=== PATIENT | female | born 1990 | race American Indian/Alaskan Native ===

== ENCOUNTER 2017-04-07 11:15 | Inpatient (IN) | payer MEDICAID, OTHER ==
[2017-04-07] MEDS ORDERED: Citric Acid/Sodium Citrate Solution 30 ML Cup PO ONE (12:01)
[2017-04-07] MEDS ORDERED: Sodium Chloride 0.9% 10 ML Syringe FLUSH PRN (12:01)
[2017-04-07] MEDS ORDERED: Magnesium Sulfate/Water 100 ML IV ONE (12:03)
[2017-04-07] MEDS ORDERED: Betamethasone Acetate/Betamethasone Sod Phosphate 30 MG/5 ML MDV IM STA (12:04)
[2017-04-07] MEDS ORDERED: Oxytocin/Normal Saline 60 UNIT/1,000 ML BAG ONE (12:06)
[2017-04-07] MEDS ORDERED: ceFAZolin 2 GM in Premix Bag 1 BAG IV ONE (12:30)
--- NOTE | 2017-04-07 12:46 | US ---
Clinical history: 27-year-old gravid female with twins (dichorionic/diamniotic) who at 30 weeks is "i n labor". Most recent obstetrical sonogram 30 March, [facility], confirms "twin live intrauterine gestatio ns with separate sacs and anterior placentas. Largest baby in the upper uterus, left, with average ag e of 30 weeks while the smaller baby, lower uterine segment, had an average gestational age of 28 wee ks 4 days." Interpretation: Limited emergency sonographic imaging for presentation demonstrates the infant on the right, lower ut erine segment to be in a transverse lie and breech presentation. Clinically, maternal dilatation cervix "5 cm".
[2017-04-07] MEDS ORDERED: Misoprostol 400 MCG (4 X 100 MCG TAB) ONE (12:53)
[2017-04-07] MEDS ORDERED: Methylergonovine 0.2 MG/1 ML Amp ONE (12:54)
[2017-04-07] MEDS ORDERED: Carboprost Tromethamine 250 MCG/1 ML Amp ONE (12:54)
--- NOTE | 2017-04-07 13:25 | HP ---
CHIEF COMPLAINT: Increased contractions. HISTORY OF PRESENT ILLNESS: A 27-year-old, 3, para 2-0-0-2, currently at 30 and 6/7 weeks gestation, based on a 3rd trimester ultrasound. The patient reports contractions since about 2 o'clock this morning that she thought were not that bad and going to go way; since that time, they got worse, specifically at about 10:00 a.m. they became severe enough that she felt she needed to come into the hospital and could not get a ride, so presented by ambulance. She has dichorionic diamniotic twins. She had denied any leakage of fluid, vaginal bleeding prior to presentation. She has had good movement. She has only had 1 outpatient care visit and then 1 transfer from here to [place] at 27+ weeks for some threatened labor with vaginal bleeding; at that time, cervix was 1.9 cm in cervical length. She was diagnosed with no placenta previa. PAST MEDICAL HISTORY: Abnormal Pap smear, urinary tract infections, chronic anemia, and history of methamphetamine positive on her last drug test. PAST SURGICAL HISTORY: None. SOCIAL HISTORY: She continues to deny any use of tobacco, alcohol, or drugs. She has 3 and 5-year-old daughters at home. She is not working. The father of the baby is present; his name is Glenn Ponce. He reports that he is healthy as are his parents. He is working for [employer]; his cell phone number is [phone]. FAMILY HISTORY: Heart disease in mother and maternal grandmother. Diabetes in mother and maternal aunts. Otherwise, family history is noncontributory. No history of multiple births. MEDICATIONS: None. The patient is not taking her vitamins or iron as prescribed. ALLERGIES: None. REVIEW OF SYSTEMS: As listed above. No nausea, vomiting, chest pain, or shortness of breath. Denies any dysuria or other new symptoms other than potential labor. No headaches or blurry vision. PHYSICAL EXAMINATION: Vital Signs: Can be reviewed on her monitoring strip. Blood pressure 134/83, pulse of 91, temperature is 97.5. HEENT: Severe dental caries. Otherwise, grossly unremarkable. Heart: Regular without obvious murmur. Lungs: Intermittent cough and chest congestion audible. Abdomen: Gravid and fundal height appropriate with dates. Stowell shows primarily uterine irritability, but contractions seemed to be coming about every 4 to 5 minutes based on the patient's behavior and palpate firm. Ultrasound shows both of the babies heads are up by mom's liver. Baby A's buttocks are down by the vagina and baby B's buttocks are over by the spleen. Bag of water is intact. Attempted cervical length ultrasound, and no cervix was essentially seen. Digital exam revealed cervix to be 5 to 6 cm dilated, and palpable foot or hand presenting. Significant vaginal bleeding was also noted on examination. Extremities: No edema, erythema, or tenderness noted. SKIN: No obvious skin rashes. NEUROLOGIC: Normal. ASSESSMENT: 1. Dichorionic diamniotic twins, in labor. 2. Breech presentation of twin A with extremity presenting, breech oblique presentation of twin B. 3. High-risk . 4. Insufficient care. 5. Severe anemia with most recently known hemoglobin of 8.0 with noncompliance of medical treatments. 6. History of methamphetamine abuse. 7. Unknown gonorrhoea and chlamydia status; they have not been collected this . Other lab tests were essentially negative for hepatitis, HIV, syphilis, Rubella equivocal, etc. PLAN: Intensive Care Nursery team has been notified and they will be sending 2 transport teams to fruit picker machine operator the infants. Due to the patient's amount of vaginal bleeding, we are going to go to the operating room and try and provide spinal anesthetic and hopefully wait until the Team gets here to start surgery. If that is not possible, we will need to deliver these twins earlier. Dr. Wolf will attend twin A; I will attend twin B. After that time , Dr. Rodriguez and Adal Johnson, MS-4, will close on the surgical case. Mother has been informed of these things and informed consent was discussed and obtained from her and appropriate consent forms signed. Details of that consent will be outlined in her operative report. ADDENDUM: Maternal UDS positive for Methamphetamine. She admited to the nurse use of Tramadol as well. [facility] /[id number] BECKIE
[2017-04-07] MEDS ORDERED: Oxytocin/Normal Saline 30 UNIT/500 ML BAG IV SCH ×2 (15:00→23:00)
[2017-04-07] MEDS: Lactated Ringers 1,000 ML IV ONE ×2 (15:01→18:26)
--- NOTE | 2017-04-07 15:26 | PCM.SN ---
- Free Text/Narrative Note: 04/07/17 1220 preop o allergies on no medications no past surgery or family history of complications with anesthesia heart regular rhythm lungs expiratory rhonchi possible respiratory infection hgb 9.4 plt 301 npo 8 hrs mallampati 1 plan spinal anesthesia this along with risks goals alternatives explained to patient and accepted
[2017-04-07] MEDS ORDERED: Erythromycin Base 0.5% Ophth Oint 1 GM Tube EYEBOTH ONE (15:50)
[2017-04-07] MEDS ORDERED: Phytonadione 1 MG/0.5 ML Syringe SUBCUT ONE (15:51)
[2017-04-07] MEDS ORDERED: Ketorolac 30 MG/ML SDV IVPUSH ONE (16:37)
[2017-04-07] MEDS ORDERED: Midazolam 1 MG/ML 2 ML SDV IV ONE (16:37)
[2017-04-07] MEDS ORDERED: Ondansetron 4 MG/2 ML SDV IV ONE (16:37)
[2017-04-07] MEDS ORDERED: Dexamethasone 4 MG/ML SDV IV ONE (16:37)
[2017-04-07] MEDS ORDERED: Lactated Ringers 1,000 ML IV ONE (16:37)
[2017-04-07] MEDS ORDERED: ePHEDrine 50 MG/ML SDV IV ONE (16:37)
[2017-04-07] MEDS ORDERED: fentaNYL 100 MCG/2 ML SDV IV ONE (16:37)
[2017-04-07] MEDS ORDERED: fentaNYL 100 MCG/2 ML SDV IVPUSH ONE (19:19)
[2017-04-07] MEDS: guaiFENesin 100 MG/5 ML Soln 5 ML UD Cup PO PRN (19:35)
[2017-04-07] MEDS ORDERED: Naloxone 2 MG/2 ML Syringe IVPUSH PRN (21:22)
[2017-04-07] MEDS ORDERED: Measles, Mumps & Rubella Vaccine 0.5 ML SDV SUBCUT ONE (21:22)
[2017-04-07] MEDS ORDERED: Acetaminophen/oxyCODONE 325-5 MG Tab PO PRN ×2 (21:22)
[2017-04-07] MEDS ORDERED: ePHEDrine 50 MG/ML SDV IVPUSH PRN (21:22)
[2017-04-07] MEDS ORDERED: diphenhydrAMINE 50 MG/ML SDV IVPUSH PRN (21:22)
[2017-04-07] MEDS ORDERED: Acetaminophen 325 MG Tab PO PRN (21:22)
[2017-04-07] MEDS: Ketorolac 30 MG/ML SDV IVPUSH SCH (21:59)
[2017-04-08] MEDS: Lactated Ringers 1,000 ML IV SCH ×2 (01:37→11:55)
[2017-04-08] MEDS: guaiFENesin 100 MG/5 ML Soln 5 ML UD Cup PO PRN ×4 (01:43→20:30)
[2017-04-08] MEDS: ceFAZolin 1 GM in Premix Bag 1 BAG IV SCH ×3 (02:26→17:37)
[2017-04-08] MEDS: Ketorolac 30 MG/ML SDV IVPUSH SCH ×2 (03:32→09:40)
--- NOTE | 2017-04-08 06:57 | PCM.SN ---
- Free Text/Narrative Note: 04/08/17 7920 postop patient recovered well from spinal anesthesia eating drinking denies nausea pain well controlled no complaints or apparent complications with anesthesia
--- NOTE | 2017-04-08 07:23 | OR ---
DATE: 04/07/2017 PREOPERATIVE DIAGNOSES: 1. Dichorionic-diamniotic twins in labor. 2. Breech presentation of twin A with extremity presenting, breech oblique presentation of twin B. 3. High-risk . 4. Insufficient care. 5. Severe anemia, acute on chronic. 6. History of methamphetamine abuse with a positive methamphetamine drug screen prior to surgery as well as admission of use of tramadol. 7. Unknown Gonorrhea and Chlamydia status. 8. Unknown group B Streptococcus status. POSTPROCEDURE DIAGNOSES: 1. Dichorionic-diamniotic twins in labor. 2. Breech presentation of twin A with extremity presenting, breech oblique presentation of twin B. 3. High-risk . 4. Insufficient care. 5. Severe anemia, acute on chronic. 6. History of methamphetamine abuse with a positive methamphetamine drug screen prior to surgery as well as admission of use of tramadol. 7. Unknown gonorrhea and chlamydia status. 8. Unknown group B Streptococcus status. 9. Suspicion for a small placental abruption. 10.Meconium-stained fluid for twin B. BRIEF HISTORY: The patient is a 27-year-old 3, para 2-0-0-2, currently at 30 and 6/7 weeks' gestation based on third-trimester ultrasound, who presented to the hospital complaining of increased force and frequency of contractions worse since 10:00 am. Ultimately, she was found to be 5 to 6 cm dilated with extremities presenting. Ultrasound confirming the positions as noted above. She also had a moderate amount of vaginal bleeding present on examination. Please see history and physical for full details. She was brought to the operating room and held there with spinal anesthesia in place to stall the labor and allow us to delay delivery until the Intensive Care nursery team was available to assist with the babies. The patient was not a transfer candidate due to advanced cervical dilatation and her advanced stage of labor at this time as well as high-risk presentation of the babies. SURGEON: Annmarie García MD. DIGITAL MARKETING ASSOCIATE: Raven Wolf MD. SECOND HOTEL SERVICES SALES REPRESENTATIVE: Adal Johnson MS-IV. Available in the operating room, Dr. Rodriguez, general surgeon. PROCEDURE PERFORMED: Primary low transverse section without complications. CONSENT: Discussed with the patient and her boyfriend indications, risks, benefits, and alternatives of primary low transverse section for delivery of breech twins while in advanced labor. Discussed plan for preoperative antibiotics to reduce risk of infection, anticipation of significant blood loss that may require a blood transfusion as well as its inherent risks, risk of injury to any internal organs and adjacent structures including, but not limited to, large blood vessels, nerves, veins, muscles, bladder, fallopian tubes, uterus, ovaries, ureters, intestines, and any other adjacent structures, potential for injury to the babies that would require immediate repair. Discussed that the babies will be transferred to a higher level of care with the Intensive Care nursery available. Mother will be kept here at least 2 days postoperatively to make sure that she is doing well. Discussed potential for complications that could require mother to be transferred out as well. Also, discussed remote risk of for her and/or either of the baby's. Her questions were answered and she was agreeable to proceed. Appropriate consent forms were signed and can be found in the chart. PROCEDURE IN DETAIL: The patient was brought to the operating room and spinal anesthesia obtained. She was laid in the dorsal supine position with leftward tilt. The Shaikh indwelling catheter had been in place since the delivery room. We waited until the NICU team was nearby, we were able to wait since she was not having any further vaginal bleeding. monitoring tracings were also continued during this entire time and were reassuring and reactive. The spinal was able to control the contractions, so that labor was not progressing. Once the team was close enough, abdomen was prepped with Betadine and sterile dressings applied in the usual fashion, appropriate location for skin incision was decided upon and marked and skin was tested. The skin incision was made with scalpel at 1355 hours and carried down to the subcutaneous tissues, superficial vessels controlled with cautery prior to transection as much as possible. Fascia was nicked bilaterally with the cautery in order to create the initial opening. The Unger scissors were then used to extend the fascial incision bilaterally. Kochers were used to grasp the fascia, tented up, and rectus muscles dissected off with traction and Unger scissors. Inferior fascial edge grasped with Kochers, tented up, and rectus muscles dissected off with Unger scissors. Rectus muscles were in the midline with blunt finger dissection and peritoneal cavity entered with blunt finger dissection and traction. Uterus was inspected and had a bluish quality to it making us concern for underlying abruption. Several large blood vessels were also noted throughout the uterus itself. Lower uterine segment was now well-developed presumably due to the nature as well as the extremities presenting more so than julius breech. After the NICU team was ready, we made the uterine incision at 1403 hours and carried that down until just a thin layer was present. Hysterotomy itself was created with blunt finger penetration and extended bilaterally using the Quintanilla method curving upward at the outward edges to avoid some of the larger blood vessels. Immediately upon entry to the uterus, there was noted to be a fair amount of dark old blood consistent with recent small abruption, placenta initially presented at the hysterotomy site as well. Amniotic fluid sac was intact and ruptured with Allis clamps and then the 's feet were delivered most readily and baby was noted to be in right sacrum anterior. We delivered to the level of the 's chest and then the arms were delivered after sweeping across the chest, first the right followed by the left. Infant was delivered maintaining adequate flexion of the head. Infant's mouth and nose were bulb suctioned while the three-vessel umbilical cord was doubly clamped and then cut and baby taken to the warmer for further evaluation. Cord blood sample then obtained. Amniotic fluid sac for twin B was then brought up to the hysterotomy site and a light meconium-stained fluid was noted, that amniotic fluid sac was ruptured and baby B was noted to be with the head near the maternal liver and spine up with the buttocks over by the maternal spleen. I had attempted to rotate the baby to head down and due to my angle was unsuccessful, Dr. Wolf, however, was able to easily turn the baby to vertex presentation and then delivered the baby, head 1st. The 's mouth and nose were bulb suctioned and the three-vessel umbilical cord doubly clamped and cut and baby taken to the warmer for the awaiting NICU nurses. The cord blood sample was then obtained and then placenta was delivered by gentle cord traction and concomitant uterine massage at 1408 hours. Bleeders of the hysterotomy site were controlled with Stiles's, and the hysterotomy closed with a running lock stitch of 0 Vicryl in the usual fashion. There remained some continued bleeders and a 2nd imbricated, an occasional locking stitch was used as a 2nd layer on the uterus and hemostasis was improved. There were still 1 area of bleeding and a single [id number] stitch was placed, after which the bleeding was well controlled. The surgical site was irrigated and remained hemostatic. The Mateus O retractor was removed and pericolic gutters were cleared of all clots and debris. Hysterotomy site reinspected and remained hemostatic. Peritoneal layer then closed with a remnant of 0 Vicryl stitch that was available and then that layer was irrigated and cleared of all clots and debris. Fascia was closed with a running stitch of 0 looped PDS in the usual fashion. Subcutaneous bleeders were then controlled with cautery and this layer irrigated. Skin was then closed with hari. Mother had tolerated the procedure well. nursing staff was taking care of the infants in the adjacent operating room. FINDINGS: Twin A, delivered RSA viable male, born at 1406 hours, scores of 7 and 9. Twin B delivered in RENU position at 1408 hours, scores of 6 and 7, also male. Maternal anatomy was normal. She did have several large blood vessels on the uterus, which we took care to avoid. ESTIMATED BLOOD LOSS: 1 L. URINE OUTPUT: 100 mL clear. FLUIDS: 3700 mL of crystalloids, and normal saline with Pitocin. COMPLICATIONS: None. DISPOSITION: Mother to go to the PACU, infants to remain with the nursing staff until they are transferred to [place]. [facility] /[id number] MTDD
[2017-04-08] MEDS ORDERED: Acetaminophen/oxyCODONE 325-5 MG Tab PO PRN (07:58)
[2017-04-08] MEDS: Prenatal Multivitamin with Calcium/Folic Acid/Iron Tab PO SCH (09:39)
[2017-04-08] MEDS: Ferrous Sulfate 325 MG Tab PO SCH ×2 (09:39→20:37)
[2017-04-08] MEDS: Ibuprofen 800 MG Tab PO PRN (19:55)
[2017-04-08] MEDS ORDERED: Morphine 4 MG/ML Syringe IVPUSH STA (20:02)
[2017-04-08] MEDS ORDERED: Benzonatate 100 MG Cap PO PRN (20:07)
[2017-04-08] MEDS ORDERED: Azithromycin 250 MG Tab PO ONE (20:08)
[2017-04-08] MEDS: Acetaminophen/oxyCODONE 325-5 MG Tab PO PRN (20:16)
[2017-04-08] MEDS: Docusate Sodium 100 MG Cap PO PRN (20:31)
[2017-04-08] MEDS: Simethicone 80 MG Tab.Chew PO PRN (20:31)
--- NOTE | 2017-04-08 22:36 | PCM.PNPP ---
<Adal Johnson - Last Filed: 04/09/17 09:07> - General Info Date of Service: 04/08/17 Functional Status: Reports: Pain Controlled - Review of Systems General: Reports: Malaise. Denies: Fever, Weakness HEENT: Denies: Dysphasia, Headaches, Visual Changes Pulmonary: Denies: Shortness of Breath, Pleuritic Chest Pain, Cough, Hemoptysis Cardiovascular: Denies: Chest Pain, Palpitations, Lightheadedness Gastrointestinal: Denies: Flatus (patient claims), Nausea, Vomiting Genitourinary: Denies: Pain, Urgency, Hematuria Musculoskeletal: Reports: Leg Pain (sore). Denies: Neck Pain, Joint Swelling Skin: Denies: Cyanosis, Jaundice, Bruising, Pruritis Neurological: Denies: Confusion, Dizziness, Headache, Paresthesia, Syncope Psychiatric: Denies: Confusion, Depression, Hallucinations - General Info Date of Service: 04/08/17 - Patient Data Vital Signs - Most Recent: Last Vital Signs Temp 98.7 F 04/08/17 16:00 Pulse 72 04/08/17 16:00 Resp 18 04/08/17 16:00 BP 114/76 04/08/17 16:00 Pulse Ox 98 04/08/17 16:00 Weight - Most Recent: 62.142 kg I&O - Last 24 Hours: Intake & Output 04/08/17 04/08/17 04/08/17 06:59 14:59 22:59 Intake Total 1600 750 Output Total 625 1800 Balance 975 -1050 Med Orders - Current: Current Medications Acetaminophen (Tylenol) 650 mg PO Q6H PRN PRN Reason: mild pain or fever Benzonatate (Tessalon Perles) 100 mg PO TID PRN PRN Reason: Cough Last Admin: 04/08/17 20:31 Dose: 100 mg Diphenhydramine HCl (Benadryl) 25 mg IVPUSH Q6H PRN PRN Reason: Itching or Nausea Docusate Sodium (Colace) 100 mg PO Q12H PRN PRN Reason: Constipation Last Admin: 04/08/17 20:31 Dose: 100 mg Ephedrine Sulfate (Ephedrine Sulfate) 5 mg IVPUSH SEECOMMENT PRN PRN Reason: Other Ferrous Sulfate (Ferrous Sulfate) 325 mg PO BID MARGUERITE Last Admin: 04/08/17 20:37 Dose: 325 mg Guaifenesin (Robitussin) 100 mg PO Q6H PRN PRN Reason: Cough Last Admin: 04/08/17 20:30 Dose: 100 mg Lactated Ringer's (Ringers, Lactated) 1,000 mls @ 125 mls/hr IV ASDIRECTED MARGUERITE Last Admin: 04/08/17 11:55 Dose: 125 mls/hr Oxytocin/Sodium Chloride (Pitocin In Ns 30 Unit/500 Ml) 30 unit in 500 mls @ 500 mls/hr IV TITRATE MARGUERITE; 500 MUNITS/MIN PRN Reason: Protocol Ibuprofen (Motrin) 800 mg PO Q8H PRN PRN Reason: mild pain or fever Last Admin: 04/08/17 19:55 Dose: 800 mg Naloxone HCl (Narcan) 0.1 mg IVPUSH SEECOMMENT PRN PRN Reason: Respiratory Depression Oxycodone/Acetaminophen (Percocet 325-5 Mg) 2 tab PO Q4H PRN PRN Reason: Pain Last Admin: 04/08/17 20:16 Dose: 2 tab Prenat Multivit/Log Driver/Iron/Folic Ac ( Plus Iron) 1 each PO DAILY MARGUERITE Last Admin: 04/08/17 09:39 Dose: 1 each Simethicone (Simethicone) 80 mg PO Q4H PRN PRN Reason: Gas Last Admin: 04/08/17 20:31 Dose: 80 mg Discontinued Medications Azithromycin (Zithromax) 500 mg PO ONETIME ONE Stop: 04/08/17 20:09 Last Admin: 04/08/17 20:32 Dose: 500 mg Betamethasone Acet/Betameth SodPhos (Celestone Soluspan 6 Mg/Ml) 12 mg IM ONETIME STA Stop: 04/07/17 12:05 Last Admin: 04/07/17 12:41 Dose: 12 mg Carboprost Tromethamine (Hemabate Ds) Confirm Administered Dose 250 mcg .ROUTE .STK-MED ONE Stop: 04/07/17 12:55 Citric Acid/Sodium Citrate (Bicitra Solution) 30 ml PO ONETIME ONE Stop: 04/07/17 12:02 Last Admin: 04/07/17 17:09 Dose: Not Given Dexamethasone (Dexamethasone) 4 mg IV .STK-MED ONE Stop: 04/07/17 16:38 Ephedrine Sulfate (Ephedrine Sulfate) 20 mg IV .STK-MED ONE Stop: 04/07/17 16:38 Fentanyl (Sublimaze) 50 mcg IV .STK-MED ONE Stop: 04/07/17 16:38 Fentanyl (Sublimaze) 50 mcg IVPUSH ONETIME ONE Stop: 04/07/17 19:20 Last Admin: 04/07/17 19:35 Dose: Not Given Lactated Ringer's (Ringers, Lactated) 1,000 mls @ 999 mls/hr IV .BOLUS ONE Stop: 04/07/17 12:48 Last Infusion: 04/08/17 01:35 Dose: Infused Magnesium Sulfate (Magnesium Sulfate 4 Gm In Water 100 Ml) 100 mls @ 25 mls/hr IV ONETIME ONE Stop: 04/07/17 16:02 Last Infusion: 04/07/17 13:15 Dose: 50 mls/hr Oxytocin/Sodium Chloride (Pitocin In Ns 30 Unit/500 Ml) Confirm Administered Dose 60 unit in 1,000 mls @ as directed .ROUTE .STK-MED ONE Stop: 04/07/17 12:07 Cefazolin Sodium/Dextrose 2 gm (/ Premix) 50 mls @ 100 mls/hr IV ONETIME ONE Stop: 04/07/17 12:59 Last Admin: 04/07/17 13:41 Dose: 100 mls/hr Oxytocin/Sodium Chloride (Pitocin In Ns 30 Unit/500 Ml) 30 unit in 500 mls @ 125 mls/hr IV TITRATE MARGUERITE; 125 MUNITS/MIN PRN Reason: Protocol Last Titration: 04/07/17 16:00 Dose: 50 mls/hr Lactated Ringer's (Ringers, Lactated) 1,000 mls @ as directed IV .STK-MED ONE Stop: 04/07/17 16:38 Cefazolin Sodium/Dextrose 1 gm (/ Premix) 50 mls @ 100 mls/hr IV Q8H MARGUERITE Stop: 04/08/17 18:29 Last Admin: 04/08/17 17:37 Dose: 100 mls/hr Ketorolac Tromethamine (Toradol) 30 mg IVPUSH .STK-MED ONE Stop: 04/07/17 16:38 Ketorolac Tromethamine (Toradol) 15 mg IVPUSH Q6H MARGUERITE Stop: 04/08/17 09:31 Last Admin: 04/08/17 09:40 Dose: 15 mg Measles/Mumps/Rubella Vaccine Live (M-M-R Ii Vaccine) 0.5 ml SUBCUT .ONCE ONE Stop: 04/07/17 21:23 Last Admin: 04/07/17 22:51 Dose: Not Given Methylergonovine Maleate (Methergine) Confirm Administered Dose 0.2 mg .ROUTE .STK-MED ONE Stop: 04/07/17 12:55 Midazolam HCl (Versed 1 Mg/Ml) 1 mg IV .STK-MED ONE Stop: 04/07/17 16:38 Misoprostol (Cytotec) Confirm Administered Dose 800 mcg .ROUTE .STK-MED ONE Stop: 04/07/17 12:54 Morphine Sulfate (Morphine) 4 mg IVPUSH ONETIME STA Stop: 04/08/17 20:03 Last Admin: 04/08/17 20:13 Dose: 4 mg Ondansetron HCl (Zofran) 4 mg IV .STK-MED ONE Stop: 04/07/17 16:38 Oxycodone/Acetaminophen (Percocet 325-5 Mg) 1 tab PO Q4H PRN PRN Reason: Pain (moderate 4-6) Oxycodone/Acetaminophen (Percocet 325-5 Mg) 2 tab PO Q4H PRN PRN Reason: Pain (moderate 4-6) Last Admin: 04/08/17 07:49 Dose: 2 tab Oxycodone/Acetaminophen (Percocet 325-5 Mg) 2 tab PO Q6H PRN PRN Reason: Pain (moderate 4-6) Last Admin: 04/08/17 15:11 Dose: 2 tab Sodium Chloride (Saline Flush) 10 ml FLUSH ASDIRECTED PRN PRN Reason: Keep Vein Open Last Admin: 04/07/17 15:01 Dose: 10 ml - Infant Interaction Infant Disposition, : Twins transfered to GF Interaction: Not Applicable Infant Feeding: Other (see below) (See outside facility notes) Support Person: Significant Other - Recovery Exam Fundal Tone: Firm Fundal Level: 2 Fingerbreadths Below Umbilicus Fundal Placement: Midline Lochia Amount: Small Lochia Color: Rubra/Red Perineum Description: Intact, Minimal Bruising/Swelling Episiotomy/Laceration: None Bladder Status: Indwelling Catheter in Place Urinary Elimination: Indwelling Catheter - Exam General: Alert, Oriented HEENT: Pupils Reactive, Mucous Membr. Moist/[place] Neck: Supple Lungs: Normal Respiratory Effort, Wheezing Cardiovascular: Regular Rate, Regular Rhythm, No Murmurs GI/Abdominal Exam: Normal Bowel Sounds, Soft Extremities: Normal Inspection, Normal Range of Motion, No Pedal Edema Skin: Warm, Dry, Intact Wound/Incisions: Healing Well Neurological: No New Focal Deficit Psy/Mental Status: Alert, Normal Affect, Normal Mood - Problem List Review Problem List Initiated/Reviewed/Updated: Yes - Assessment Assessment:: 1. post day 1 2. Patient is doing generally well with some general soreness and possible - Plan Plan:: 1. Continue current treatment and observe for any changes 2. Plan to keep mom until tomorrow <Annmarie Calero - Last Filed: 04/10/17 14:11> - Patient Data Vital Signs - Most Recent: Last Vital Signs Temp 99.1 F 04/09/17 08:00 Pulse 63 04/09/17 08:00 Resp 18 04/09/17 04:00 BP 125/81 04/09/17 08:00 Pulse Ox 100 04/09/17 08:00 Med Orders - Current: Current Medications Discontinued Medications Acetaminophen (Tylenol) 650 mg PO Q6H PRN PRN Reason: mild pain or fever Azithromycin (Zithromax) 500 mg PO ONETIME ONE Stop: 04/08/17 20:09 Last Admin: 04/08/17 20:32 Dose: 500 mg Benzonatate (Tessalon Perles) 100 mg PO TID PRN PRN Reason: Cough Last Admin: 04/08/17 20:31 Dose: 100 mg Betamethasone Acet/Betameth SodPhos (Celestone Soluspan 6 Mg/Ml) 12 mg IM ONETIME STA Stop: 04/07/17 12:05 Last Admin: 04/07/17 12:41 Dose: 12 mg Carboprost Tromethamine (Hemabate Ds) Confirm Administered Dose 250 mcg .ROUTE .STK-MED ONE Stop: 04/07/17 12:55 Citric Acid/Sodium Citrate (Bicitra Solution) 30 ml PO ONETIME ONE Stop: 04/07/17 12:02 Last Admin: 04/07/17 17:09 Dose: Not Given Dexamethasone (Dexamethasone) 4 mg IV .STK-MED ONE Stop: 04/07/17 16:38 Diphenhydramine HCl (Benadryl) 25 mg IVPUSH Q6H PRN PRN Reason: Itching or Nausea Docusate Sodium (Colace) 100 mg PO Q12H PRN PRN Reason: Constipation Last Admin: 04/09/17 09:10 Dose: 100 mg Ephedrine Sulfate (Ephedrine Sulfate) 20 mg IV .STK-MED ONE Stop: 04/07/17 16:38 Ephedrine Sulfate (Ephedrine Sulfate) 5 mg IVPUSH SEECOMMENT PRN PRN Reason: Other Fentanyl (Sublimaze) 50 mcg IV .STK-MED ONE Stop: 04/07/17 16:38 Fentanyl (Sublimaze) 50 mcg IVPUSH ONETIME ONE Stop: 04/07/17 19:20 Last Admin: 04/07/17 19:35 Dose: Not Given Ferrous Sulfate (Ferrous Sulfate) 325 mg PO BID MARGUERITE Last Admin: 04/09/17 09:09 Dose: 325 mg Guaifenesin (Robitussin) 100 mg PO Q6H PRN PRN Reason: Cough Last Admin: 04/09/17 04:25 Dose: 100 mg Lactated Ringer's (Ringers, Lactated) 1,000 mls @ 999 mls/hr IV .BOLUS ONE Stop: 04/07/17 12:48 Last Infusion: 04/08/17 01:35 Dose: Infused Magnesium Sulfate (Magnesium Sulfate 4 Gm In Water 100 Ml) 100 mls @ 25 mls/hr IV ONETIME ONE Stop: 04/07/17 16:02 Last Infusion: 04/07/17 13:15 Dose: 50 mls/hr Oxytocin/Sodium Chloride (Pitocin In Ns 30 Unit/500 Ml) Confirm Administered Dose 60 unit in 1,000 mls @ as directed .ROUTE .STK-MED ONE Stop: 04/07/17 12:07 Cefazolin Sodium/Dextrose 2 gm (/ Premix) 50 mls @ 100 mls/hr IV ONETIME ONE Stop: 04/07/17 12:59 Last Admin: 04/07/17 13:41 Dose: 100 mls/hr Oxytocin/Sodium Chloride (Pitocin In Ns 30 Unit/500 Ml) 30 unit in 500 mls @ 125 mls/hr IV TITRATE MARGUERITE; 125 MUNITS/MIN PRN Reason: Protocol Last Titration: 04/07/17 16:00 Dose: 50 mls/hr Lactated Ringer's (Ringers, Lactated) 1,000 mls @ as directed IV .STK-MED ONE Stop: 04/07/17 16:38 Lactated Ringer's (Ringers, Lactated) 1,000 mls @ 125 mls/hr IV ASDIRECTED MARGUERITE Last Admin: 04/09/17 09:54 Dose: 125 mls/hr Oxytocin/Sodium Chloride (Pitocin In Ns 30 Unit/500 Ml) 30 unit in 500 mls @ 500 mls/hr IV TITRATE MARGUERITE; 500 MUNITS/MIN PRN Reason: Protocol Cefazolin Sodium/Dextrose 1 gm (/ Premix) 50 mls @ 100 mls/hr IV Q8H MARGUERITE Stop: 04/08/17 18:29 Last Admin: 04/08/17 17:37 Dose: 100 mls/hr Ibuprofen (Motrin) 800 mg PO Q8H PRN PRN Reason: mild pain or fever Last Admin: 04/09/17 04:24 Dose: 800 mg Ketorolac Tromethamine (Toradol) 30 mg IVPUSH .STK-MED ONE Stop: 04/07/17 16:38 Ketorolac Tromethamine (Toradol) 15 mg IVPUSH Q6H MARGUERITE Stop: 04/08/17 09:31 Last Admin: 04/08/17 09:40 Dose: 15 mg Measles/Mumps/Rubella Vaccine Live (M-M-R Ii Vaccine) 0.5 ml SUBCUT .ONCE ONE Stop: 04/07/17 21:23 Last Admin: 04/07/17 22:51 Dose: Not Given Methylergonovine Maleate (Methergine) Confirm Administered Dose 0.2 mg .ROUTE .STK-MED ONE Stop: 04/07/17 12:55 Midazolam HCl (Versed 1 Mg/Ml) 1 mg IV .STK-MED ONE Stop: 04/07/17 16:38 Misoprostol (Cytotec) Confirm Administered Dose 800 mcg .ROUTE .STK-MED ONE Stop: 04/07/17 12:54 Morphine Sulfate (Morphine) 4 mg IVPUSH ONETIME STA Stop: 04/08/17 20:03 Last Admin: 04/08/17 20:13 Dose: 4 mg Naloxone HCl (Narcan) 0.1 mg IVPUSH SEECOMMENT PRN PRN Reason: Respiratory Depression Ondansetron HCl (Zofran) 4 mg IV .STK-MED ONE Stop: 04/07/17 16:38 Oxycodone/Acetaminophen (Percocet 325-5 Mg) 1 tab PO Q4H PRN PRN Reason: Pain (moderate 4-6) Oxycodone/Acetaminophen (Percocet 325-5 Mg) 2 tab PO Q4H PRN PRN Reason: Pain (moderate 4-6) Last Admin: 04/08/17 07:49 Dose: 2 tab Oxycodone/Acetaminophen (Percocet 325-5 Mg) 2 tab PO Q6H PRN PRN Reason: Pain (moderate 4-6) Last Admin: 04/08/17 15:11 Dose: 2 tab Oxycodone/Acetaminophen (Percocet 325-5 Mg) 2 tab PO Q4H PRN PRN Reason: Pain Last Admin: 04/09/17 09:07 Dose: 2 tab Prenat Multivit/Log Driver/Iron/Folic Ac ( Plus Iron) 1 each PO DAILY MARGUERITE Last Admin: 04/09/17 09:09 Dose: 1 each Simethicone (Simethicone) 80 mg PO Q4H PRN PRN Reason: Gas Last Admin: 04/09/17 09:09 Dose: 80 mg Sodium Chloride (Saline Flush) 10 ml FLUSH ASDIRECTED PRN PRN Reason: Keep Vein Open Last Admin: 04/07/17 15:01 Dose: 10 ml - Plan Plan:: Patient seen and examined with Adal Johnson MS4. Agree with his note as scribed on my behalf. Add to assessment: Anemia of blood loss and chronic anemia. Insufficent care. Methamphetamine abuse and reports Tramadol use. Unknown GC/ Chlamydia status. Unknown GBS. Add to plan: Continue routine post operative care. Encourage to seek drug counseling and treatment. guest services lead consulted for benefit of the children. -sales agent food vending service 04/10/17 [id number].
[2017-04-09] MEDS: Acetaminophen/oxyCODONE 325-5 MG Tab PO PRN ×3 (00:11→09:07)
[2017-04-09] MEDS: Simethicone 80 MG Tab.Chew PO PRN ×3 (00:11→09:09)
[2017-04-09] MEDS: Ibuprofen 800 MG Tab PO PRN (04:24)
[2017-04-09] MEDS: guaiFENesin 100 MG/5 ML Soln 5 ML UD Cup PO PRN (04:25)
[2017-04-09] MEDS: Ferrous Sulfate 325 MG Tab PO SCH (09:09)
[2017-04-09] MEDS: Prenatal Multivitamin with Calcium/Folic Acid/Iron Tab PO SCH (09:09)
[2017-04-09] MEDS: Docusate Sodium 100 MG Cap PO PRN (09:10)
[2017-04-09 09:38] VITALS: BP 125/81
[2017-04-09] MEDS: Lactated Ringers 1,000 ML IV SCH (09:54)
[2017-04-09] MEDS ORDERED: Oxytocin/Normal Saline 30 UNIT/500 ML BAG IV ONE (12:44)
--- NOTE | 2017-04-09 22:53 | DISCH ---
DATE: 04/09/2017 SUBJECTIVE: The patient is postoperative day #2 from a primary low-transverse C - section for a twin at 30 weeks' gestational age, who was admitted with abruption and UDS positive for methamphetamines. The patient is tolerating p.o., voiding, ambulating, has good pain control. Her cough is improving. She was given 24 hours of Ancef and she was started on a Z-Davion for respiratory infection. The patient's babies are both in the NICU at [place]. She does desire discharge to go down there and see her babies. OBJECTIVE: Vital Signs: She is afebrile. Heart rate 63 to 75, blood pressure 114 to 123 over 48 to 76, respiratory rate 18, O2 sat 98 to 100%. Abdomen: Benign. The bandage was removed. Jamia are in place. Incision is clean, dry, and intact. Fundus is firm below the umbilicus. Extremities: Have no tenderness and no edema. The patient is A positive, rubella non immune. Preoperative CBC showed a white count of 16.7, hemoglobin 9.4, and platelets of 301. The patient's hemoglobin was rechecked the night of surgery and it was 8.0 and then repeated again this morning, hemoglobin has come down to 6.8, white count 20.7, and platelets 256. ASSESSMENT AND PLAN: Postoperative day #2, status post primary for twins at 30 weeks' gestational age with placental abruption. The patient very much desires to go down to [place] and see her babies. Therefore, I will discharge her to home and she will proceed to [place]. I did offer to give her a transfusion due to her hemoglobin being below 7. She is asymptomatic. We would like to start iron b.i.d. Due to this upper respiratory infection and still some leukocytosis, I did advise her to finish her Z-Davion and she will follow up in 1 week for staple removal with her primary. MOD /[id number] BECKIE
--- NOTE | 2017-04-18 09:45 | US ---
Clinical history: 27-year-old gravid female with twins (dichorionic/diamniotic) who at 30 weeks is "i n labor". Most recent obstetrical sonogram 30 March, [facility], confirms "twin live intrauterine gestatio ns with separate sacs and anterior placentas. Largest baby in the upper uterus, left, with average ag e of 30 weeks while the smaller baby, lower uterine segment, had an average gestational age of 28 wee ks 4 days." Interpretation: Limited emergency sonographic imaging for presentation demonstrates the infant on the right, lower ut erine segment to be in a transverse lie and breech presentation. Clinically, maternal dilatation cervix "5 cm".
== END 2017-04-09 12:45 | disposition home or self-care (01) | DRG 765 ==
LOC: DL.OBCHECK 11:15 → DL.MS 12:01 → OBSVTOIN 14:06 → DL.MS 16:00 → DL.OB 04-09 12:40 → UNDODISIN 04-09 12:45
PROVIDERS: ADMIT Family Medicine; ATTEND Family Medicine
PROC: 10D00Z1 Extraction of Products of Conception, Low, Open Approach (ICD-10-PCS; principal; 2017-04-07)
DX: O60.14X2 Preterm labor third trimester with preterm delivery third trimester, fetus 2 (principal); O45.93 Premature separation of placenta, unspecified, third trimester; O99.324 Drug use complicating childbirth; O30.043 Twin pregnancy, dichorionic/diamniotic, third trimester; O32.1XX2 Maternal care for breech presentation, fetus 2; Z3A.31 31 weeks gestation of pregnancy; Z37.2 Twins, both liveborn; O99.02 Anemia complicating childbirth; F15.90 Other stimulant use, unspecified, uncomplicated; O77.0 Labor and delivery complicated by meconium in amniotic fluid; O99.53 Diseases of the respiratory system complicating the puerperium
CPT/HCPCS: 01961; 36415; 76815; 76817; 80305; 80373; 81001; 85025; 85027; 86850; 86900; 86901; 86920; 86922; 87081; 87491; 87591; A9270-GY; G0480; J0690; J1100; J1885; J2250; J2270; J2405; J2590; J3010; J3475; J7050; J7120

== ENCOUNTER 2018-11-01 18:46 | Emergency (ER) | payer MEDICAID, OTHER ==
[2018-11-01 18:53] VITALS: BP 132/79
--- NOTE | 2018-11-01 19:18 | EDM.PDOC ---
ED HPI GENERAL MEDICAL PROBLEM - General Chief Complaint: Respiratory Problem Stated Complaint: BAD COLD,LUNG HURTS WHEN COUGHING 701 Time Seen by Provider: 11/01/18 19:10 Source of Information: Reports: Patient, RN, RN Notes Reviewed History Limitations: Reports: No Limitations - History of Present Illness INITIAL COMMENTS - FREE TEXT/NARRATIVE: Pt to the ER with c/o cough for 2 days. She states she has been having chills, non-productive cough, and pain in the right side ribs with coughing. Patient states she vomited 2 days ago and between the vomiting and the cough she feels she strained a muscle on the right side. Patient denies fever, diarrhea. Onset: Gradual Right Lower Chest Pain Score (Numeric/FACES): 7 - Related Data Allergies Allergy/AdvReac Type Severity Reaction Status Date / Time No Known Allergies Allergy Verified 11/01/18 18:50 Home Meds: Home Meds . 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 ED EXAM, GENERAL - Physical Exam Exam: See Below Exam Limited By: No Limitations General Appearance: Alert, WD/WN, No Apparent Distress Eye Exam: Bilateral Eye: EOMI, Normal Inspection Ears: Normal External Exam, Hearing Grossly Normal Nose: Normal Inspection Throat/Mouth: Normal Inspection Head: Atraumatic, Normocephalic Neck: Normal Inspection, Supple, Non-Tender, Full Range of Motion Respiratory/Chest: No Respiratory Distress, Lungs Clear, Normal Breath Sounds, No Accessory Muscle Use, Other (tender right lower anterior ribs) Cardiovascular: Normal Peripheral Pulses, Regular Rate, Rhythm, No Edema, No Gallop, No JVD, No Murmur, No Rub Peripheral Pulses: 2+: Radial (L), Radial (R) GI/Abdominal: Normal Bowel Sounds, Soft, Non-Tender (Female) Exam: Deferred Rectal (Female) Exam: Deferred Back Exam: Normal Inspection, Full Range of Motion, NT Extremities: Normal Inspection, Normal Range of Motion, Non-Tender, Normal Capillary Refill, No Pedal Edema Neurological: Alert, Oriented, CN II-XII Intact, Normal Cognition, Normal Gait, Normal Reflexes, No Motor/Sensory Deficits Psychiatric: Normal Affect, Normal Mood Skin Exam: Warm, Dry, Intact, Normal Color, No Rash Lymphatic: No Adenopathy Course - Vital Signs Last Recorded V/S: Last Vital Signs Temp 97.7 F 11/01/18 18:50 Pulse 102 H 11/01/18 18:50 Resp 18 11/01/18 18:50 BP 132/79 11/01/18 18:50 Pulse Ox 100 11/01/18 18:50 Departure - Departure Time of Disposition: 19:15 Disposition: Home, Self-Care 01 Condition: Good Clinical Impression: Upper respiratory infection Qualifiers: URI type: unspecified viral URI Qualified Code(s): J06.9 - Acute upper respiratory infection, unspecified - Discharge Information *PRESCRIPTION DRUG MONITORING PROGRAM REVIEWED*: No *COPY OF PRESCRIPTION DRUG MONITORING REPORT IN PATIENT TIA: No Instructions: Cough, Adult, [id number], Viral Respiratory Infection, Easy-To- Read, Upper Respiratory Infection, Adult, [id number] Referrals: Missy Hidalgo [facility] [Primary Care Provider] - Forms: ED Department Discharge Additional Instructions: Drink plenty of water RX: Cheratussin cough syrup May use Tylenol and/or Ibuprofen as directed for pain Follow up with your primary care facility
== END 2018-11-01 19:25 | disposition home or self-care (01) ==
LOC: DL.ED 18:46
DX: J06.9 Acute upper respiratory infection, unspecified (principal); F17.210 Nicotine dependence, cigarettes, uncomplicated
CPT/HCPCS: 99283

== ENCOUNTER 2020-07-21 06:06 | Inpatient (IN) | payer MEDICAID ==
[~2020-07-21 06:06] MED LIST: Acetaminophen 325 MG Tab PO PRN; Acetaminophen/oxyCODONE 325-5 MG Tab PO PRN; Carboprost Tromethamine 250 MCG/1 ML Amp IM PRN; Citric Acid/Sodium Citrate Solution 30 ML Cup PO ONE; Ibuprofen 800 MG Tab PO PRN; Methylergonovine 0.2 MG/1 ML Amp IM PRN; Misoprostol 400 MCG (4 X 100 MCG TAB) RECTAL PRN; Naloxone 2 MG/2 ML Syringe IVPUSH PRN; Ondansetron 4 MG/2 ML SDV IVPUSH PRN; Oxytocin/Normal Saline 30 UNIT/500 ML BAG IV SCH; Tranexamic Acid 1,000 MG in Sodium Chloride 0.9% 100 ML IV PRN; ceFAZolin 2 GM in Premix Bag 1 BAG IV ONE; ePHEDrine 50 MG/ML SDV IVPUSH PRN
[2020-07-21] MEDS: Lactated Ringers 1,000 ML IV SCH ×4 (06:25→17:33)
[2020-07-21] MEDS ORDERED: Oxytocin/Normal Saline 60 UNIT/1,000 ML BAG ONE (07:11)
[2020-07-21] MEDS: Prenatal Multivitamin with Calcium/Folic Acid/Iron Tab PO SCH ×2 (08:00→10:41)
[2020-07-21] MEDS: Simethicone 80 MG Tab.Chew PO SCH ×5 (08:00→20:59)
--- NOTE | 2020-07-21 09:00 | CR ---
PROCEDURE INFORMATION: Exam: XR Chest, 1 View Exam date and time: 07/21/2020 8:51 AM Age: 30 years old Clinical indication: Other: Hypoxia; Additional info: Hypoxia without symptoms, rapid covid negative TECHNIQUE: Imaging protocol: XR of the chest Views: 1 view. COMPARISON: No relevant prior studies available. FINDINGS: Lungs: There is minor streaky left basilar atelectasis. The lungs are otherwise clear. Pleural space: No pneumothorax is evident, allowing for incomplete inclusion of the left lung apex. The costophrenic angles are sharp. Heart/Mediastinum: Unremarkable. No cardiomegaly. Bones/joints: Unremarkable. IMPRESSION: No evidence for acute pulmonary disease.
[2020-07-21] MEDS ORDERED: Oxytocin/Normal Saline 30 UNIT/500 ML BAG IV ONE (11:34)
--- NOTE | 2020-07-21 12:07 | OR ---
DATE: 07/21/2020 PREOPERATIVE DIAGNOSES: 1. Intrauterine at 39 weeks by 27-3/7 weeks ultrasound. 2. History of section x2, requests repeat low-transverse section. 3. Gestational hypertension versus transient hypertension. Suspect transient hypertension as blood pressure normalized in the operating room. 4. Insufficient care. 5. History of hemorrhage. 6. Group B Streptococcus negative. 7. Rubella nonimmune. 8. KATHIA-II, due for loop electrosurgical excision procedure. 9. Anemia of . Hemoglobin 9.8 preoperatively. 10.-1-0-5. POSTOPERATIVE DIAGNOSES: 1. Intrauterine at 39 weeks by 27-3/7 weeks ultrasound, delivered. 2. History of section x2, requests repeat low-transverse section. 3. Gestational hypertension versus transient hypertension. Suspect transient hypertension as blood pressure normalized in the operating room. 4. Insufficient care. 5. History of hemorrhage. 6. Group B Streptococcus negative. 7. Rubella nonimmune. 8. KATHIA-II, due for loop electrosurgical excision procedure. 9. Anemia of . Hemoglobin 9.8 preoperatively. 10.-1-0-5. 11.Hypoxia noted in the operating room with chest x-ray to be ordered. No other symptoms elicited, cough, shortness of breath, change in color, but requiring oxygen. 12.Very thin lower uterine segment/window. Able to see through it and see vertex and hair, and recommendation for delivery with repeat section next at 37 weeks or at onset of contractions/labor. 13.Meconium-stained fluid. PROCEDURE PERFORMED: Nonstress test followed by repeat low-transverse section. PMO CONSULTANT: Annmarie García MD ANESTHESIA: Spinal. ESTIMATED BLOOD LOSS: 400 mL. IV FLUIDS: 1000 mL lactated Ringer's, 300 mL of Pitocin. URINE OUTPUT: 75 mL of clear yellow. START: 8:13 UTERINE INCISION: 8:15 DELIVERY: 8:16. STOP: 8:37 FINDINGS: Female. score of 8 and 9. Weight pending. DESCRIPTION OF PROCEDURE IN DETAIL: After proper consent was obtained, the patient was brought to the operating room, where spinal anesthetic was administered. Shaikh was placed under sterile conditions. The abdomen was prepped and draped in normal sterile fashion with the patient placed in supine position with left lateral tilt. A skin incision was then made over lower abdomen in transverse-type fashion over previous scar with Pfannenstiel-type scar noted. This was carried down fascia and scored in midline. Subcutaneous tissue was raked laterally with Maradiaga retractor. Fascial incision was extended in transverse fashion using curved Unger's. Adama clamps x2 used to grasp the superior aspect of fascia and rectus and pyramidalis muscles were dissected from the fascia using sharp and blunt technique. In a similar fashion, Adama clamps x2 were used to grasp the inferior portion of the incision. Rectus and pyramidalis muscles dissected from fascia using sharp and blunt technique. Rectus muscles were then in the midline with blunt technique. Abdominal cavity was entered in blunt technique. Incision was extended superiorly and inferiorly in blunt technique. Mateus O retractor was then introduced and used. Vesicouterine peritoneum was identified, incised in transverse fashion with Metzenbaum scissors, and bladder flap was made digitally. Lower uterine segment did reveal window that progressed throughout the lower transverse region revealing vertex seen as well as meconium- stained fluid. Uterine incision was made on lower transverse region above the window to allow repair of the incision. A curvilinear incision was made over this area and was spread in a transverse fashion using blunt technique. Bulging bag of water was noted and ruptured with Allis clamps. Meconium-stained fluid returned. vertex was then delivered through the incision, followed by rest of the infant without difficulty. Mouth and nares were suctioned. Cord was doubly clamped and cut, and was brought over to team. Then, approximately 10 mL of cord blood was obtained for labs. Placenta was then delivered with gentle cord traction and fundal massage. Uterine cavity was then cleared of all blood clots and debris. Stiles clamps were used to grasp the uterine incision. This was closed in a running locked fashion and tied at lateral margins with 1-0 Vicryl. Left lateral portion revealed minimal bleeding. [id number]-mp-[id number] stitch with 1-0 Vicryl placed and hemostasis reassured. First inspection of the uterine incision revealed hemostasis. Mateus O retractor was then removed and paracolic gutters were then cleared of all blood clots and debris with lap sponge. Anterior cul-de-sac was irrigated copiously. All blood clots and debris removed. Second inspection of the uterine incision and anterior cul-de-sac revealed good hemostasis. Rectus muscles were then reapproximated in midline with [id number] stitch using 1-0 Vicryl. Subfascial tissues were found to be hemostatic. Fascia was closed in a running fashion and tied at lateral margins with 0 looped PDS. Subcutaneous tissue irrigated copiously. Hemostasis reassured. Skin was reapproximated with medium hari. Sterile Aquacel dressing applied. Uterine fundus was firm and massaged at the conclusion of the case, -2 below umbilicus. No immediate complications were noted. Sponge, lap, and needle counts were correct. The patient received 2 g of Ancef preoperatively. Pitocin per protocol, and received Toradol at the conclusion of the case for pain control. Mother and are currently stable at the time of dictation, and due to the hypoxia requiring oxygen via nasal cannula with the oxygen being around 88% to 89% on room air, we will proceed with chest x-ray in the PACU and follow clinically and closely at this point in time. I did discuss with the patient the need and recommendation if she becomes again with a very thin lower uterine segment/window, recommendation to proceed with at labor or at 37 weeks, whichever comes sooner. [facility] /[id number]
[2020-07-21] MEDS: diphenhydrAMINE 50 MG/ML SDV IVPUSH PRN ×2 (12:28→20:59)
[2020-07-21] MEDS: Ketorolac 30 MG/ML SDV IVPUSH SCH ×2 (14:23→20:59)
--- NOTE | 2020-07-21 15:40 | OBOUT ---
DATE: 07/21/2020 TIME: 6:40 to 7 a.m. REASON FOR NST: 1. Intrauterine at 39 weeks by 27-3/7-week ultrasound. 2. History of x2, request for repeat low-transverse . 3. Gestational hypertension versus transient hypertension upon admission. 4. Insufficient care. 5. History of hemorrhage. 6. GBS negative. 7. Rubella nonimmune. 8. KATHIA-II earlier this year. Recommended LEEP, has not presented. 9. -1-0-5. NST INTERPRETATION: During this time period, heart tone baseline is approximately 140 and at least two 15 x 15 beats per minute accelerations, making this strip reactive as well as reassuring. Tocometer reveals potential of 3 contractions, minimally felt by the patient. ASSESSMENT: 1. Nonstress test, reactive and reassuring. 2. Tocometer without contractions. PLAN: Initial vitals, blood pressure 144/88, recheck 143/92. The patient has been afebrile. Heart rate 71 to 72. Please see H and P done through [employer]. We will plan on doing repeat low-transverse as soon as crew is ready and available. For this H and P, records called for reviewed and supplemented by patient history as well as review of systems reviewed fully and felt to be contributory for what is noted. Suspect her hypertension most likely is transient in nature as she was nervous and had contractions. We will follow closely. At this point in time, no signs or symptoms of severe preeclampsia. [facility] /[id number]
[2020-07-22] MEDS: Lactated Ringers 1,000 ML IV SCH (00:22)
[2020-07-22] MEDS: Ketorolac 30 MG/ML SDV IVPUSH SCH (02:28)
[2020-07-22] MEDS: Prenatal Multivitamin with Calcium/Folic Acid/Iron Tab PO SCH (08:20)
[2020-07-22] MEDS: Simethicone 80 MG Tab.Chew PO SCH ×4 (08:20→20:36)
[2020-07-22] MEDS: Acetaminophen/oxyCODONE 325-5 MG Tab PO PRN ×4 (08:20→20:38)
[2020-07-22] MEDS: Docusate Sodium 100 MG Cap PO PRN ×2 (08:20→20:36)
[2020-07-22] MEDS: Ibuprofen 800 MG Tab PO PRN ×2 (12:33→20:37)
[2020-07-22] MEDS ORDERED: Measles, Mumps & Rubella Vaccine 0.5 ML SDV SUBCUT ONE (13:08)
--- NOTE | 2020-07-22 13:36 | PN ---
DATE: 07/22/2020 Postop day #1, status post repeat low transverse . SUBJECTIVE: The patient is tolerating p.o., is ambulating, urinating, passing flatus, wondering about discharge tomorrow. OBJECTIVE: Vital Signs: Temperature 98, heart rate 75, blood pressure 117/79, respiratory rate 16. Lungs: Clear to auscultation bilaterally. Heart: S1, S2. Regular rate and rhythm. Abdomen: Firm uterus. -1 below umbilicus. Aquacel dressing does have some shadowing on it and does not appear to be saturated or significantly changed. We will continue to follow clinically and closely. Extremities: Trace pedal edema. No calf pain. LABORATORY DATA: Pending is a CBC. ASSESSMENT AND PLAN: 1. Postop day #1, status post repeat low transverse . 2. Anemia of . Hemoglobin 9.8 upon admission. We will follow for CBC today. Currently asymptomatic. 3. Hypoxia was noted in the OR. In the PACU, recovery, her oxygen sats were 99% to 100% on room air. X-ray was done at that time. No acute cardiopulmonary process or issues noted. PLAN: We will continue to follow clinically and closely. Possible discharge tomorrow. [facility] /[id number]
[2020-07-23] MEDS: Ibuprofen 800 MG Tab PO PRN (04:07)
[2020-07-23] MEDS: Acetaminophen/oxyCODONE 325-5 MG Tab PO PRN ×2 (04:07→08:16)
[2020-07-23] MEDS: Prenatal Multivitamin with Calcium/Folic Acid/Iron Tab PO SCH (08:16)
[2020-07-23] MEDS: Simethicone 80 MG Tab.Chew PO SCH (08:16)
[2020-07-23] MEDS: Docusate Sodium 100 MG Cap PO PRN (08:16)
[2020-07-23 08:39] VITALS: BP 144/98; PULSE 83
[2020-07-23] MEDS ORDERED: Ketorolac 30 MG/ML SDV IVPUSH ONE (12:04)
[2020-07-23] MEDS ORDERED: Ondansetron 4 MG/2 ML SDV IV ONE (12:04)
[2020-07-23] MEDS ORDERED: Dexamethasone 4 MG/ML SDV IV ONE (12:04)
[2020-07-23] MEDS ORDERED: Morphine PF 1 MG/ML Amp ONE (12:04)
[2020-07-23] MEDS ORDERED: ePHEDrine 50 MG/ML SDV IV ONE (12:04)
[2020-07-23] MEDS ORDERED: Lactated Ringers 1,000 ML IV ONE (12:04)
--- NOTE | 2020-07-23 13:56 | DISCH ---
ADMIT DIAGNOSES: 1. Intrauterine at 39 weeks by 27-3/7 weeks' ultrasound. 2. History of section x2, requests repeat low transverse section. 3. Transient hypertension suspected. 4. Insufficient care. 5. History of hemorrhage. 6. Group B streptococcus negative. 7. Rubella nonimmune. 8. Cervical intraepithelial neoplasia 2, will need a LEEP, consider . 9. Anemia of . Hemoglobin 9.8 upon admission. 10.-1-0-5. DISCHARGE DIAGNOSES: 1. Intrauterine at 39 weeks by 27-3/7 weeks' ultrasound; delivered. 2. History of section x2, requests repeat low transverse section. 3. Transient hypertension suspected. 4. Insufficient care. 5. History of hemorrhage. 6. Group B streptococcus negative. 7. Rubella nonimmune. 8. Cervical intraepithelial neoplasia 2, will need a LEEP, consider . 9. Anemia of . Hemoglobin 9.8 upon admission. 10.-1-0-5. 11.Very thin lower uterine segment/window with recommendation to deliver at 37 weeks or at onset of labor whichever is sooner with next . 12.Meconium-stained fluid. 13.Hypoxia in the OR only, not noted in the PACU. Chest x-ray was done without concerns. O2 sats were 88% to 89% on room air while proceeding with her , resolved thereafter. Chest x-ray with no acute cardiopulmonary process noted. PROCEDURES PERFORMED: NST followed by repeat low transverse , performed by Scottie Frost MD. HISTORY OF PRESENT ILLNESS: Please see H and P. SUMMARY OF HOSPITAL COURSE: The patient was admitted on the above date with above diagnoses, underwent above procedures, had a repeat low transverse C- section under spinal with an EBL of 400 mL yielding a female with score 8 and 9, weighing 6 pounds 5 ounces (2870 g). Please see op report for further details. In the OR, [employer]AP noted that hypoxia was noted with O2 sats 88% to 89% on room air. Nasal cannula was started. By the time she got to the PACU, no hypoxia was noted. Chest x-ray was done for baseline with no obvious issues elicited. Postop day #1, please see progress note. Postop day #2, date of discharge, the patient was tolerating p.o.'s, ambulating, urinating, passing flatus, requesting discharge. PHYSICAL EXAMINATION: Vital Signs: Last set of vitals updated and listed in chart. Temperature 97.4, heart rate 83, blood pressure rechecked 124/85, then 140/84 and 144/98. We will continue to follow closely. Lungs: Clear to auscultation bilaterally. Heart: S1, S2. Regular rate and rhythm. Abdomen: Firm uterus, -2 below umbilicus. Aquacel dressing dry and intact. Extremities: No peripheral edema. The patient denies any headaches, visual changes, or upper abdominal pain. She denies any chest pain, shortness of breath, or lightheadedness. LABORATORY DATA: On 07/22/2020, white cell count 12.1, hemoglobin 8 compared to predelivery hemoglobin 9.8, platelets 367. Rapid COVID test was negative upon admission. CONDITION ON DISCHARGE COMPARED TO CONDITION ON ADMISSION: Improved. DISCHARGE INSTRUCTIONS: 1. Diet: As tolerated. 2. Activity: No lifting more than 20 pounds. No sit-ups or straining, and pelvic rest for the next 6 weeks with immediate return to fertility discussed with the patient. Reasons to return or go to emergency room were discussed with the patient in detail including, but not limited to, temperature greater than 100.4, foul- smelling discharge, red hot tender breasts or increased vaginal bleeding or increasing pain, drainage, or redness around the incision or if she has any headaches, visual changes, or upper abdominal pain. DISCHARGE MEDICATIONS: 1. Loeg-cth-rkqmpys Tylenol or ibuprofen for pain. 2. Percocet 5/325 1 to 2 q.6 hours p.r.n., #20, no refills. Discussed use of this medication, adverse and unwanted effects, as well as precautions with driving. 3. Colace 100 mg b.i.d. p.r.n., #60, no refills. 4. Iron sulfate 325 b.i.d. x6 weeks, dispensed q.s., no refills. FOLLOWUP: On 07/28/2020 for staple removal and she wishes to follow with her baby in town with me and we will make appointment for baby at around the same time as well. Did discuss importance of followup and ramifications of not doing so as well as reasons to return or go to emergency room in regard to her baby. [facility] /[id number]
== END 2020-07-23 12:05 | disposition home or self-care (01) | DRG 788 ==
LOC: DL.OB 06:06 → OBSVTOIN 08:16 → DL.MS 07-22 15:26
PROVIDERS: ADMIT Family Medicine; ATTEND Family Medicine
PROC: 10D00Z1 Extraction of Products of Conception, Low, Open Approach (ICD-10-PCS; principal; 2020-07-21)
PROC: 3E0234Z Introduction of Serum, Toxoid and Vaccine into Muscle, Percutaneous Approach (ICD-10-PCS; 2020-07-21)
DX: O34.211 Maternal care for low transverse scar from previous cesarean delivery (principal); Z37.0 Single live birth; Z3A.39 39 weeks gestation of pregnancy; O99.02 Anemia complicating childbirth; D64.9 Anemia, unspecified; O13.4 Gestational [pregnancy-induced] hypertension without significant proteinuria, complicating childbirth; O77.0 Labor and delivery complicated by meconium in amniotic fluid; N87.1 Moderate cervical dysplasia; Z20.828 Contact with and (suspected) exposure to other viral communicable diseases; R09.02 Hypoxemia; Z23 Encounter for immunization
CPT/HCPCS: 01961; 36415; 71045; 85027; 86850; 86900; 86901; 90471; 90707; A9270-GY; J0690; J1100; J1200; J1885; J2274; J2405; J2590; J7120; U0002

== ENCOUNTER 2020-10-26 14:30 | Emergency (ER) | payer MEDICAID ==
[2020-10-26 14:46] VITALS: BP 116/85; PULSE 132
[2020-10-26] MEDS ORDERED: Sodium Chloride 0.9% 10 ML Syringe FLUSH PRN (14:52)
[2020-10-26 15:44] LABS: ANION GAP 20.2 mEq/L (7-13)
[2020-10-26] MEDS ORDERED: Furosemide 100 MG/10 ML SDV IVPUSH ONE (15:53)
[2020-10-26] MEDS ORDERED: Iopamidol 755 Mg/ML 100 ML Bottle IVPUSH ONE (15:54)
--- NOTE | 2020-10-26 16:58 | CT ---
PROCEDURE INFORMATION: Exam: CT Chest With Contrast; Diagnostic Exam date and time: 10/26/2020 4:33 PM Age: 30 years old Clinical indication: Other: Pe study; Additional info: Acute edema, dyspnea, d-dimer 3090 TECHNIQUE: Imaging protocol: Diagnostic computed tomography of the chest with contrast. Radiation optimization: All CT scans at this facility use at least one of these dose optimization techniques: automated exposure control; mA and/or kV adjustment per patient size (includes targeted exams where dose is matched to clinical indication); or iterative reconstruction. Contrast material: [id number]; Contrast volume: 72 ml; Contrast route: INTRAVENOUS (IV); COMPARISON: No relevant prior studies available. FINDINGS: Lungs: Multiple small pulmonary cysts or emphysematous blebs in both lungs. Atelectasis in both lung bases. Pleural spaces: Moderate right pleural effusion. Tiny left pleural effusion. Heart: Cardiomegaly. Small pericardial effusion measuring approximately 1.8 cm in diameter over the inferior left ventricle. Aorta: Unremarkable. No aortic aneurysm. Lymph nodes: Unremarkable. No enlarged lymph nodes. Gallbladder and bile ducts: Cholelithiasis. Soft tissue stranding surrounding the gallbladder. Consider gallbladder ultrasound of there are clinical signs of cholecystitis. Bones/joints: Unremarkable. No acute fracture. Soft tissues: Diffuse subcutaneous edema. Other findings: Mesenteric edema. IMPRESSION: 1. No pulmonary embolism identified. 2. Cardiomegaly with small pericardial effusion and moderate right pleural effusion. 3. Diffuse mesenteric and subcutaneous edema. 4. Bulky cholelithiasis with pericholecystic edema. Gallbladder ultrasound be helpful in further evaluation possible acute cholecystitis if there are clinical signs to support this.
--- NOTE | 2020-10-26 17:29 | EDM.PDOC ---
"Scribed by Geraldine Bland 10/26/20 1516 for Michaela Bojorquez MD ED HPI GENERAL MEDICAL PROBLEM - General Chief Complaint: Respiratory Problem Stated Complaint: SWELLING OF THE LEGS Time Seen by Provider: 10/26/20 14:48 Source of Information: Reports: Patient, RN, RN Notes Reviewed History Limitations: Reports: No Limitations - History of Present Illness INITIAL COMMENTS - FREE TEXT/NARRATIVE: Patient presents to ED by POV with complaint of shortness of breath with cough and lower extremity edema. States has been coughing x3 days, it is now productive and ribs hurt when she coughs. She first noticed onset of lower extremity swelling yesterday. Admits to AUGUSTIN. She denies fever, headache, wheezing or hemoptysis. Denies any history of cardiac disease or prior history of edema. No new medications. No known sick exposures. Her only medication is Depo-Provera, which is not new to her. Onset Date: 10/23/20 Duration: Getting Worse Location: Reports: Chest, Lower Extremity, Left, Lower Extremity, Right Severity: Severe Improves with: Reports: None Worsens with: Reports: None Associated Symptoms: Reports: No Other Symptoms - Related Data Allergies Allergy/AdvReac Type Severity Reaction Status Date / Time No Known Allergies Allergy Verified 10/26/20 14:45 Home Meds: Home Meds . [No Known Home Meds] 10/26/20 [History] Past Medical History - Past Health History Medical/Surgical History: Denies Medical/Surgical History HEENT History: Reports: Impaired Vision Other HEENT History: wears glasses Genitourinary History: Reports: UTI, Recurrent NUTRITION SPECIALIST History: Reports: , Other (See Below) Other NUTRITION SPECIALIST History: hx abnormal pap with colpo Musculoskeletal History: Reports: Fracture Hematologic History: Reports: Anemia - Past Surgical History Female Surgical History: Reports: Section Social & Family History - Family History Family Medical History: No Pertinent Family History - Caffeine Use Caffeine Use: Reports: Soda - Living Situation & Occupation Living situation: Reports: with Family ED ROS GENERAL - Review of Systems Review Of Systems: Comprehensive ROS is negative, except as noted in HPI. ED EXAM, GENERAL - Physical Exam Exam: See Below Exam Limited By: No Limitations General Appearance: Alert, WD/WN, No Apparent Distress Eye Exam: Bilateral Eye: Normal Inspection Ears: Normal External Exam, Normal Canal, Hearing Grossly Normal, Normal TMs Nose: Normal Inspection, Normal Mucosa, No Blood Throat/Mouth: Normal Inspection, Normal Lips, Normal Teeth, Normal Gums, Normal Oropharynx, Normal Voice, No Airway Compromise Head: Atraumatic, Normocephalic Neck: Normal Inspection, Supple, Non-Tender, Full Range of Motion Respiratory/Chest: No Respiratory Distress, No Accessory Muscle Use, Chest Non- Tender, Decreased Breath Sounds. No: Rales, Rhonchi, Wheezing Cardiovascular: Normal Peripheral Pulses, Regular Rate, Rhythm, No JVD, No Murmur, Tachycardia, Other (+2 pitting edema to B/L distal thighs) GI/Abdominal: Normal Bowel Sounds, Soft, No Organomegaly, Tender (mild generalized abdominal tenderness). No: Guarding, Rigid, Rebound Extremities: Normal Range of Motion, Normal Capillary Refill, Pedal Edema (+2 pitting edema), Leg Pain. No: Joint Swelling, Arm Pain, Darryl's Sign, Increased Warmth, Mottled, Redness Neurological: Alert, Oriented, CN II-XII Intact, Normal Cognition, Normal Gait, No Motor/Sensory Deficits Psychiatric: Normal Affect, Normal Mood Skin Exam: Warm, Dry, Intact, Normal Color, No Rash #1 Interpretation EKG Date: 10/26/20 Time: 01:15 Rhythm: Other (sinus tachycardia) Rate (Beats/Min): 121 [place]: Normal P-Wave: Present (probable left atrial enlargement.) QRS: Normal ST-T: Other (Borderline T abnormalities, anterior leads.) QT: Prolonged Comparison: NA - No Prior EKG Course - Vital Signs Last Recorded V/S: Last Vital Signs Temp 97.5 F 10/26/20 15:08 Pulse 132 H 10/26/20 15:08 Resp 18 10/26/20 15:08 BP 116/85 10/26/20 15:08 Pulse Ox 100 10/26/20 15:08 - Orders/Labs/Meds Orders: Active Orders 24 hr Category Date Time Status EKG 12 Lead [EKG Documentation Completion] [RC] STAT Care 10/26/20 14:51 Active Peripheral IV Care [RC] . DIRECTED Care 10/26/20 14:52 Active CULTURE BLOOD [BC] Stat Lab 10/26/20 14:58 Received CULTURE BLOOD [BC] Stat Lab 10/26/20 15:09 Received Sodium Chloride 0.9% [Saline Flush] Med 10/26/20 14:52 Active 10 ml FLUSH ASDIRECTED PRN Blood Culture x2 Reflex Set [OM.PC] Stat Oth 10/26/20 14:51 Ordered Peripheral IV Insertion Adult [OM.PC] Stat Ot 10/26/20 14:51 Ordered Medication Orders Sodium Chloride (Sodium Chloride 0.9% 10 Ml Syringe) 10 ml FLUSH ASDIRECTED PRN PRN Reason: Keep Vein Open Last Admin: 10/26/20 16:49 Dose: 10 ml Documented by: LUIS FELIPE Labs: Laboratory Tests 10/26/20 10/26/20 10/26/20 Range/Units 14:58 14:58 14:58 WBC 7.8 (5.0-10.0) 10^3/uL RBC 4.52 (4.2-5.4) 10^6/uL Hgb 9.5 L D (12.0-16.0) g/dL Hct 32.4 L (37.0-47.0) % MCV 71.7 L D (80-100) fL MCH 21.0 L (27.0-34.0) pg MCHC 29.3 L (33.0-35.0) g/dL Plt Count 454 H D (150-450) 10^3/uL Neut % (Auto) 66.2 (42.2-75.2) % Lymph % (Auto) 25.8 (20.5-50.1) % [place] % (Auto) 7.3 (2-8) % Eos % (Auto) 0.3 L (1.0-3.0) % Baso % (Auto) 0.4 (0.0-1.0) % Add Manual Diff Yes Neutrophils % (Manual) 72 (42-75) % Lymphocytes % (Manual) 26 (20-50) % Monocytes % (Manual) 2 (2-8) % Hypochromasia 2+ moderate Anisocytosis 1+ slight Microcytosis 2+ moderate Target Cells 1+ slight PT 11.6 (9.0-12.0) SEC INR 1.2 (0.9-1.2) APTT 23.0 (22.0-34.0) SEC D-Dimer, Quantitative 3090 H (0-400) ng/mL Sodium 141 (136-145) mmol/L Potassium 4.2 (3.5-5.1) mmol/L Chloride 106 (98-107) mmol/L Carbon Dioxide 19 L (21-32) mmol/L Anion Gap 20.2 H (7-13) mEq/L BUN 18 (7-18) mg/dL Creatinine 1.18 H (0.55-1.02) mg/dL Est Cr Clr Drug Dosing 66.45 mL/min Estimated GFR (MDRD) 55 BUN/Creatinine Ratio 15.3 (No establ ref range) Glucose 80 (74-99) mg/dL Lactic Acid (0.4-2.0) mmol/L Calcium 7.9 L (8.5-10.1) mg/dL Magnesium 1.6 L (1.8-2.4) mg/dL Total Bilirubin 0.8 (0.2-1.0) mg/dL AST 34 (15-37) U/L ALT 46 (14-59) U/L Alkaline Phosphatase 129 H (46-116) U/L Troponin I 0.066 H* (0.000-0.056) ng/mL C-Reactive Protein 1.1 H (0.0-0.9) mg/dL B-Natriuretic Peptide 2110 H (0-100) pg/ml Total Protein 6.6 (6.4-8.2) g/dL Albumin 2.6 L (3.4-5.0) g/dL Globulin 4.0 Albumin/Globulin Ratio 0.65 TSH, Ultra Sensitive 0.25 L (0.36-3.74) uIU/mL Urine Color (YELLOW) Urine Appearance (CLEAR) Urine pH (5.0-9.0) Ur Specific [place] (1.005-1.030) Urine Protein (NEGATIVE) Urine Glucose (UA) (NEGATIVE) Urine Ketones (NEGATIVE) Urine Occult Blood (NEGATIVE) Urine Nitrite (NEGATIVE) Urine Bilirubin (NEGATIVE) Urine Urobilinogen (0.2-1.0) mg/dL Ur Leukocyte Esterase (NEGATIVE) Urine RBC /HPF Urine WBC (0-5/HPF) /HPF Ur Epithelial Cells (NOT SEEN) /HPF Urine Bacteria (0-FEW/HPF) /HPF Urine Mucus (NOT SEEN) /LPF Urine HCG, Qual Urine Opiates Screen (NEGATIVE) Ur Oxycodone Screen (NEGATIVE) Urine Methadone Screen (NEGATIVE) Ur Barbiturates Screen (NEGATIVE) U Tricyclic Antidepress (NEGATIVE) Ur Phencyclidine Scrn (NEGATIVE) Ur Amphetamine Screen (NEGATIVE) U Methamphetamines Scrn (NEGATIVE) Urine MDMA Screen (NEGATIVE) U Benzodiazepines Scrn (NEGATIVE) Urine Cocaine Screen (NEGATIVE) U Marijuana (THC) Screen (NEGATIVE) Ethyl Alcohol 47 (0) mg/dL 10/26/20 10/26/20 10/26/20 Range/Units 14:58 15:07 15:07 WBC (5.0-10.0) 10^3/uL RBC (4.2-5.4) 10^6/uL Hgb (12.0-16.0) g/dL Hct (37.0-47.0) % MCV (80-100) fL MCH (27.0-34.0) pg MCHC (33.0-35.0) g/dL Plt Count (150-450) 10^3/uL Neut % (Auto) (42.2-75.2) % Lymph % (Auto) (20.5-50.1) % [place] % (Auto) (2-8) % Eos % (Auto) (1.0-3.0) % Baso % (Auto) (0.0-1.0) % Add Manual Diff Neutrophils % (Manual) (42-75) % Lymphocytes % (Manual) (20-50) % Monocytes % (Manual) (2-8) % Hypochromasia Anisocytosis Microcytosis Target Cells PT (9.0-12.0) SEC INR (0.9-1.2) APTT (22.0-34.0) SEC D-Dimer, Quantitative (0-400) ng/mL Sodium (136-145) mmol/L Potassium (3.5-5.1) mmol/L Chloride (98-107) mmol/L Carbon Dioxide (21-32) mmol/L Anion Gap (7-13) mEq/L BUN (7-18) mg/dL Creatinine (0.55-1.02) mg/dL Est Cr Clr Drug Dosing mL/min Estimated GFR (MDRD) BUN/Creatinine Ratio (No establ ref range) Glucose (74-99) mg/dL Lactic Acid 2.5 H* (0.4-2.0) mmol/L Calcium (8.5-10.1) mg/dL Magnesium (1.8-2.4) mg/dL Total Bilirubin (0.2-1.0) mg/dL AST (15-37) U/L ALT (14-59) U/L Alkaline Phosphatase (46-116) U/L Troponin I (0.000-0.056) ng/mL C-Reactive Protein (0.0-0.9) mg/dL B-Natriuretic Peptide (0-100) pg/ml Total Protein (6.4-8.2) g/dL Albumin (3.4-5.0) g/dL Globulin Albumin/Globulin Ratio TSH, Ultra Sensitive (0.36-3.74) uIU/mL Urine Color (YELLOW) Urine Appearance (CLEAR) Urine pH (5.0-9.0) Ur Specific [place] (1.005-1.030) Urine Protein (NEGATIVE) Urine Glucose (UA) (NEGATIVE) Urine Ketones (NEGATIVE) Urine Occult Blood (NEGATIVE) Urine Nitrite (NEGATIVE) Urine Bilirubin (NEGATIVE) Urine Urobilinogen (0.2-1.0) mg/dL Ur Leukocyte Esterase (NEGATIVE) Urine RBC /HPF Urine WBC (0-5/HPF) /HPF Ur Epithelial Cells (NOT SEEN) /HPF Urine Bacteria (0-FEW/HPF) /HPF Urine Mucus (NOT SEEN) /LPF Urine HCG, Qual Negative Urine Opiates Screen Negative (NEGATIVE) Ur Oxycodone Screen Negative (NEGATIVE) Urine Methadone Screen Negative (NEGATIVE) Ur Barbiturates Screen Negative (NEGATIVE) U Tricyclic Antidepress Negative (NEGATIVE) Ur Phencyclidine Scrn Negative (NEGATIVE) Ur Amphetamine Screen Negative (NEGATIVE) U Methamphetamines Scrn Positive H (NEGATIVE) Urine MDMA Screen Positive H (NEGATIVE) U Benzodiazepines Scrn Negative (NEGATIVE) Urine Cocaine Screen Negative (NEGATIVE) U Marijuana (THC) Screen Negative (NEGATIVE) Ethyl Alcohol (0) mg/dL 10/26/20 Range/Units 15:07 WBC (5.0-10.0) 10^3/uL RBC (4.2-5.4) 10^6/uL Hgb (12.0-16.0) g/dL Hct (37.0-47.0) % MCV (80-100) fL MCH (27.0-34.0) pg MCHC (33.0-35.0) g/dL Plt Count (150-450) 10^3/uL Neut % (Auto) (42.2-75.2) % Lymph % (Auto) (20.5-50.1) % [place] % (Auto) (2-8) % Eos % (Auto) (1.0-3.0) % Baso % (Auto) (0.0-1.0) % Add Manual Diff Neutrophils % (Manual) (42-75) % Lymphocytes % (Manual) (20-50) % Monocytes % (Manual) (2-8) % Hypochromasia Anisocytosis Microcytosis Target Cells PT (9.0-12.0) SEC INR (0.9-1.2) APTT (22.0-34.0) SEC D-Dimer, Quantitative (0-400) ng/mL Sodium (136-145) mmol/L Potassium (3.5-5.1) mmol/L Chloride (98-107) mmol/L Carbon Dioxide (21-32) mmol/L Anion Gap (7-13) mEq/L BUN (7-18) mg/dL Creatinine (0.55-1.02) mg/dL Est Cr Clr Drug Dosing mL/min Estimated GFR (MDRD) BUN/Creatinine Ratio (No establ ref range) Glucose (74-99) mg/dL Lactic Acid (0.4-2.0) mmol/L Calcium (8.5-10.1) mg/dL Magnesium (1.8-2.4) mg/dL Total Bilirubin (0.2-1.0) mg/dL AST (15-37) U/L ALT (14-59) U/L Alkaline Phosphatase (46-116) U/L Troponin I (0.000-0.056) ng/mL C-Reactive Protein (0.0-0.9) mg/dL B-Natriuretic Peptide (0-100) pg/ml Total Protein (6.4-8.2) g/dL Albumin (3.4-5.0) g/dL Globulin Albumin/Globulin Ratio TSH, Ultra Sensitive (0.36-3.74) uIU/mL Urine Color Yellow (YELLOW) Urine Appearance Clear (CLEAR) Urine pH 6.0 (5.0-9.0) Ur Specific [place] >= 1.030 (1.005-1.030) Urine Protein >=300 H (NEGATIVE) Urine Glucose (UA) Negative (NEGATIVE) Urine Ketones Trace H (NEGATIVE) Urine Occult Blood Negative (NEGATIVE) Urine Nitrite Negative (NEGATIVE) Urine Bilirubin Small H (NEGATIVE) Urine Urobilinogen 0.2 (0.2-1.0) mg/dL Ur Leukocyte Esterase Negative (NEGATIVE) Urine RBC 0-5 /HPF Urine WBC 0-5 (0-5/HPF) /HPF Ur Epithelial Cells Rare (NOT SEEN) /HPF Urine Bacteria Few (0-FEW/HPF) /HPF Urine Mucus Moderate H (NOT SEEN) /LPF Urine HCG, Qual Urine Opiates Screen (NEGATIVE) Ur Oxycodone Screen (NEGATIVE) Urine Methadone Screen (NEGATIVE) Ur Barbiturates Screen (NEGATIVE) U Tricyclic Antidepress (NEGATIVE) Ur Phencyclidine Scrn (NEGATIVE) Ur Amphetamine Screen (NEGATIVE) U Methamphetamines Scrn (NEGATIVE) Urine MDMA Screen (NEGATIVE) U Benzodiazepines Scrn (NEGATIVE) Urine Cocaine Screen (NEGATIVE) U Marijuana (THC) Screen (NEGATIVE) Ethyl Alcohol (0) mg/dL Meds: Medications Generic Name Dose Route Start Last Admin Trade Name Freq PRN Reason Stop Dose Admin Sodium Chloride 10 ml 10/26/20 14:52 10/26/20 16:49 Sodium Chloride 0.9% 10 Ml Syringe FLUSH 10 ml ASDIRECTED PRN Administration Keep Vein Open Discontinued Medications Generic Name Dose Route Start Last Admin Trade Name Freq PRN Reason Stop Dose Admin Furosemide 80 mg 10/26/20 15:53 10/26/20 16:48 Furosemide 100 Mg/10 Ml Sdv IVPUSH 10/26/20 15:54 80 mg NOW ONE Administration Iopamidol 100 ml 10/26/20 15:54 10/26/20 16:05 Iopamidol 755 Mg/Ml 100 Ml Bottle IVPUSH 10/26/20 15:55 100 ml ONETIME ONE Administration - Radiology Interpretation Free Text/Narrative:: [facility] Final Radiology Report Call: [phone] assistance Online chat: [email or web address] Name: AMBER BAÑUELOS Age: 30Years F Date: 10/26/2020 SSN: -- : [id number] Study: CT CHEST W CONT Requesting Physician: MICHAELA BOJORQUEZ Images: [id number] Addl Studies: Provided Clinical History: Acute edema, dyspnea, D-dimer 3090 Contrast: With Contrast Medium: [id number] Contrast Amount: 72 mL Contrast Method: Intravenous (IV) Page 1 of 2 PROCEDURE INFORMATION: Exam: CT Chest With Contrast; Diagnostic Exam date and time: 10/26/2020 4:33 PM Age: 30 years old Clinical indication: Other: Pe study; Additional info: Acute edema, dyspnea, d- dimer 3090 TECHNIQUE: Imaging protocol: Diagnostic computed tomography of the chest with contrast. Radiation optimization: All CT scans at this facility use at least one of these dose optimization techniques: automated exposure control; mA and/or kV adjustment per patient size (includes targeted exams where dose is matched to clinical indication); or iterative reconstruction. Contrast material: [id number]; Contrast volume: 72 ml; Contrast route: INTRAVENOUS (IV); COMPARISON: No relevant prior studies available. FINDINGS: Lungs: Multiple small pulmonary cysts or emphysematous blebs in both lungs. Atelectasis in both lung bases. Pleural spaces: Moderate right pleural effusion. Tiny left pleural effusion. Heart: Cardiomegaly. Small pericardial effusion measuring approximately 1.8 cm in diameter over the inferior left ventricle. Aorta: Unremarkable. No aortic aneurysm. Lymph nodes: Unremarkable. No enlarged lymph nodes. Gallbladder and bile ducts: Cholelithiasis. Soft tissue stranding surrounding the gallbladder. Consider gallbladder ultrasound of there are clinical signs of cholecystitis. Bones/joints: Unremarkable. No acute fracture. Soft tissues: Diffuse subcutaneous edema. JEN BAÑUELOSI | Final Radiology Report CONFIDENTIALITY STATEMENT This report is intended only for use by the referring physician, and only in accordance with law. If you received this in error, call [phone]. Page 2 of 2 Other findings: Mesenteric edema. IMPRESSION: 1. No pulmonary embolism identified. 2. Cardiomegaly with small pericardial effusion and moderate right pleural effusion. 3. Diffuse mesenteric and subcutaneous edema. 4. Bulky cholelithiasis with pericholecystic edema. Gallbladder ultrasound be helpful in further evaluation possible acute cholecystitis if there are clinical signs to support this. Thank you for allowing us to participate in the care of your patient. Dictated and Authenticated by: Bee Simon MD 10/26/2020 4:58 PM Central Time ([place] & [place]) Departure - Departure Time of Disposition: 17:26 Disposition: DC/Tfer to [facility] 02 Condition: Serious Clinical Impression: Anasarca, Pleural effusion, right, Methamphetamine abuse Acute CHF (congestive heart failure) Qualifiers: Heart failure type: unspecified Qualified Code(s): I50.9 - Heart failure, unspecified - Discharge Information *PRESCRIPTION DRUG MONITORING PROGRAM REVIEWED*: Not Applicable *COPY OF PRESCRIPTION DRUG MONITORING REPORT IN PATIENT TIA: Not Applicable Forms: ED Department Discharge, Interfacility Transfer EMTALA Sepsis Event Note (ED) - Evaluation Sepsis Screening Result: No Definite Risk - Focused Exam Vital Signs: Vital Signs Temp Pulse Resp BP Pulse Ox 10/26/20 15:08 97.5 F 132 H 18 116/85 100 10/26/20 14:45 95.7 F L 132 H 18 116/85 100 - My Orders Last 24 Hours: My Active Orders 10/26/20 14:51 EKG 12 Lead [EKG Documentation Completion] [RC] STAT Blood Culture x2 Reflex Set [OM.PC] Stat Peripheral IV Insertion Adult [OM.PC] Stat 10/26/20 14:52 Peripheral IV Care [RC] . DIRECTED Sodium Chloride 0.9% [Saline Flush] 10 ml FLUSH ASDIRECTED PRN 10/26/20 14:58 CULTURE BLOOD [BC] Stat 10/26/20 15:09 CULTURE BLOOD [BC] Stat - Assessment/Plan Last 24 Hours: My Active Orders 10/26/20 14:51 EKG 12 Lead [EKG Documentation Completion] [RC] STAT Blood Culture x2 Reflex Set [OM.PC] Stat Peripheral IV Insertion Adult [OM.PC] Stat 10/26/20 14:52 Peripheral IV Care [RC] . DIRECTED Sodium Chloride 0.9% [Saline Flush] 10 ml FLUSH ASDIRECTED PRN 10/26/20 14:58 CULTURE BLOOD [BC] Stat 10/26/20 15:09 CULTURE BLOOD [BC] Stat I have read and agree with the documentation that has been completed regarding this visit. By signing this record, I attest that the documentation was completed in my physical presence and is an accurate record of the encounter."
== END 2020-10-26 19:05 ==
LOC: DL.ED 14:30
DX: I50.9 Heart failure, unspecified (principal); J90 Pleural effusion, not elsewhere classified; F15.10 Other stimulant abuse, uncomplicated; Z20.822 Contact with and (suspected) exposure to COVID-19
CPT/HCPCS: 36415; 71260; 80053; 80305; 80307; 81001; 81025; 83605; 83735; 83880; 84443; 84484; 85025; 85379; 85610; 85730; 86140; 87040; 87635; 93005; 93010; 96374; 99284; 99285; J1940; Q9967; U0002

== ENCOUNTER 2021-07-24 22:53 | Emergency (ER) | payer MEDICAID ==
[~2021-07-24 22:53] MED LIST changes: -Acetaminophen 325 MG Tab PO PRN; -Acetaminophen/oxyCODONE 325-5 MG Tab PO PRN; +Activated Charcoal/Water Susp 50 GM/240 ML Tube PO ONE; -Carboprost Tromethamine 250 MCG/1 ML Amp IM PRN; -Citric Acid/Sodium Citrate Solution 30 ML Cup PO ONE; -Ibuprofen 800 MG Tab PO PRN; -Methylergonovine 0.2 MG/1 ML Amp IM PRN; -Misoprostol 400 MCG (4 X 100 MCG TAB) RECTAL PRN; -Naloxone 2 MG/2 ML Syringe IVPUSH PRN; -Ondansetron 4 MG/2 ML SDV IVPUSH PRN; -Oxytocin/Normal Saline 30 UNIT/500 ML BAG IV SCH; +Sodium Chloride 0.9% 10 ML Syringe FLUSH PRN; -Tranexamic Acid 1,000 MG in Sodium Chloride 0.9% 100 ML IV PRN; -ceFAZolin 2 GM in Premix Bag 1 BAG IV ONE; -ePHEDrine 50 MG/ML SDV IVPUSH PRN
[2021-07-24 23:35] LABS: ANION GAP 15.7 mEq/L (7-13); CHLORIDE,CL 104 mmol/L (98-107); SODIUM,NA 141 mmol/L (136-145)
[2021-07-24 23:53] VITALS: BP 115/81; PULSE 129
[2021-07-24 23:58] LABS: ACETAMINOPHEN 0 ug/mL (10-30 (Therapeutic))
--- NOTE | 2021-07-25 00:12 | EDM.PDOC ---
ED HPI GENERAL MEDICAL PROBLEM - General Chief Complaint: Behavioral/Psych Time Seen by Provider: 07/24/21 23:00 Source of Information: Reports: Patient History Limitations: Reports: No Limitations - History of Present Illness INITIAL COMMENTS - FREE TEXT/NARRATIVE: 31 y/o F ingested 600mg of ibuprofen an hour ago. Pt states she counted out 30 200mg ibuprofen and swallowed them in an attmept to kill herself. Pt states she has been depressed all year as she has lost three of her best friends this year. LMP . Denies . Has been drinking alcohol tonight. Denies any medical complaints. - Related Data Allergies Allergy/AdvReac Type Severity Reaction Status Date / Time No Known Allergies Allergy Verified 10/26/20 14:45 Home Meds: Home Meds . [No Known Home Meds] 10/26/20 [History] Past Medical History - Past Health History Medical/Surgical History: Denies Medical/Surgical History HEENT History: Reports: Impaired Vision Other HEENT History: wears glasses Cardiovascular History: Reports: None Respiratory History: Reports: None Gastrointestinal History: Reports: None Genitourinary History: Reports: UTI, Recurrent MANAGER QUANTITATIVE History: Reports: , Other (See Below) Other MANAGER QUANTITATIVE History: hx abnormal pap with colpo Musculoskeletal History: Reports: Fracture Neurological History: Reports: None Psychiatric History: Reports: None Endocrine/Metabolic History: Reports: None Hematologic History: Reports: Anemia Immunologic History: Reports: None Oncologic (Cancer) History: Reports: None Dermatologic History: Reports: None - Infectious Disease History Infectious Disease History: Reports: None - Past Surgical History Head Surgeries/Procedures: Reports: None Female Surgical History: Reports: Section Social & Family History - Family History Family Medical History: No Pertinent Family History - Tobacco Use Tobacco Use Status *Q: Never Tobacco User Second Hand Smoke Exposure: No - Caffeine Use Caffeine Use: Reports: None - Alcohol Use Date of Last Drink: 07/24/21 - Recreational Drug Use Recreational Drug Use: No ED ROS GENERAL - Review of Systems Review Of Systems: Comprehensive ROS is negative, except as noted in HPI. ED EXAM, NEURO - Physical Exam Exam: See Below Exam Limited By: No Limitations General Appearance: Alert, No Apparent Distress Ears: Normal External Exam, Normal Canal, Hearing Grossly Normal, Normal TMs Nose: Normal Inspection, Normal Mucosa, No Blood Throat/Mouth: Normal Inspection, Normal Lips, Normal Teeth, Normal Gums, Normal Oropharynx, Normal Voice, No Airway Compromise Head Exam: Atraumatic, Normocephalic Neck: Normal Inspection, Supple, Non-Tender, Full Range of Motion Respiratory/Chest: No Respiratory Distress, Lungs Clear, Normal Breath Sounds, No Accessory Muscle Use, Chest Non-Tender Cardiovascular: Normal Peripheral Pulses, Regular Rate, Rhythm, No Edema, No Gallop, No JVD, No Murmur, No Rub GI/Abdominal: Soft, Non-Tender Neurological: Alert Extremities: Normal Inspection, Normal Range of Motion, Non-Tender, No Pedal Edema, Normal Capillary Refill Psychiatric: Depressed Mood Skin Exam: Warm, Dry, Intact #1 Interpretation EKG Date: 07/24/21 Time: 23:10 Rhythm: Other (sinus tach) [place]: Normal P-Wave: Present QRS: Normal ST-T: Normal QT: Normal Course - Vital Signs Last Recorded V/S: Last Vital Signs Temp 97.7 F 07/24/21 22:43 Pulse 129 H 07/24/21 22:43 Resp 18 07/24/21 22:43 BP 115/81 07/24/21 22:43 Pulse Ox 98 07/24/21 22:43 - Orders/Labs/Meds Orders: Active Orders 24 hr Category Date Time Status Peripheral IV Care [RC] . DIRECTED Care 07/24/21 22:53 Active CULTURE URINE [RM] Stat Lab 07/25/21 00:48 Received Sodium Chloride 0.9% [Saline Flush] Med 07/24/21 22:51 Active 10 ml FLUSH ASDIRECTED PRN Peripheral IV Insertion Adult [OM.PC] Routine Oth 07/24/21 22:51 Ordered Medication Orders Sodium Chloride (Sodium Chloride 0.9% 10 Ml Syringe) 10 ml FLUSH ASDIRECTED PRN PRN Reason: Keep Vein Open Last Admin: 07/24/21 23:00 Dose: 10 ml Documented by: KASSANDRA Labs: Laboratory Tests 07/24/21 07/24/21 07/24/21 Range/Units 23:00 23:00 23:00 WBC 5.2 (5.0-10.0) 10^3/uL RBC 5.47 H (4.2-5.4) 10^6/uL Hgb 13.8 D (12.0-16.0) g/dL Hct 44.8 (37.0-47.0) % MCV 81.9 D (80-100) fL MCH 25.2 L (27.0-34.0) pg MCHC 30.8 L (33.0-35.0) g/dL Plt Count 322 D (150-450) 10^3/uL Neut % (Auto) 61.1 (42.2-75.2) % Lymph % (Auto) 25.5 (20.5-50.1) % [place] % (Auto) 12.0 H (2-8) % Eos % (Auto) 1.0 (1.0-3.0) % Baso % (Auto) 0.4 (0.0-1.0) % Sodium 141 (136-145) mmol/L Potassium 3.7 (3.5-5.1) mmol/L Chloride 104 (98-107) mmol/L Carbon Dioxide 25 (21-32) mmol/L Anion Gap 15.7 H (7-13) mEq/L BUN 5 L (7-18) mg/dL Creatinine 0.97 (0.55-1.02) mg/dL Est Cr Clr Drug Dosing TNP Estimated GFR (MDRD) > 60 BUN/Creatinine Ratio 5.2 (No establ ref range) Glucose 100 H (70-99) mg/dL Calcium 8.8 (8.5-10.1) mg/dL Magnesium 2.0 (1.8-2.4) mg/dL Total Bilirubin 0.9 (0.2-1.0) mg/dL AST 140 H (15-37) U/L ALT 92 H (14-59) U/L Alkaline Phosphatase 242 H (46-116) U/L Total Protein 7.3 (6.4-8.2) g/dL Albumin 3.3 L (3.4-5.0) g/dL Globulin 4.0 Albumin/Globulin Ratio 0.83 TSH, Ultra Sensitive 0.05 L (0.36-3.74) uIU/mL Urine Color (YELLOW) Urine Appearance (CLEAR) Urine pH (5.0-9.0) Ur Specific [place] (1.005-1.030) Urine Protein (NEGATIVE) Urine Glucose (UA) (NEGATIVE) Urine Ketones (NEGATIVE) Urine Occult Blood (NEGATIVE) Urine Nitrite (NEGATIVE) Urine Bilirubin (NEGATIVE) Urine Urobilinogen (0.2-1.0) mg/dL Ur Leukocyte Esterase (NEGATIVE) Urine RBC (0-5) /HPF Urine WBC (0-5/HPF) /HPF Ur Epithelial Cells (NOT SEEN) /HPF Urine Bacteria (0-FEW/HPF) /HPF Urine Mucus (NOT SEEN) /LPF Urine HCG, Qual Salicylates < 2.8 L (2.8-20(Therapeutic)) mg/dL Urine Opiates Screen (NEGATIVE) Ur Oxycodone Screen (NEGATIVE) Urine Methadone Screen (NEGATIVE) Acetaminophen 0 L (10-30 (Therapeutic)) ug/mL Ur Barbiturates Screen (NEGATIVE) U Tricyclic Antidepress (NEGATIVE) Ur Phencyclidine Scrn (NEGATIVE) Ur Amphetamine Screen (NEGATIVE) U Methamphetamines Scrn (NEGATIVE) Urine MDMA Screen (NEGATIVE) U Benzodiazepines Scrn (NEGATIVE) Urine Cocaine Screen (NEGATIVE) U Marijuana (THC) Screen (NEGATIVE) Ethyl Alcohol 221 (0) mg/dL Influenza Type A RNA (NEGATIVE) Influenza Type B RNA (NEGATIVE) SARS-CoV-2 RNA (CHELSI) (NEGATIVE) 07/24/21 07/25/21 07/25/21 Range/Units 23:27 00:08 00:48 WBC (5.0-10.0) 10^3/uL RBC (4.2-5.4) 10^6/uL Hgb (12.0-16.0) g/dL Hct (37.0-47.0) % MCV (80-100) fL MCH (27.0-34.0) pg MCHC (33.0-35.0) g/dL Plt Count (150-450) 10^3/uL Neut % (Auto) (42.2-75.2) % Lymph % (Auto) (20.5-50.1) % [place] % (Auto) (2-8) % Eos % (Auto) (1.0-3.0) % Baso % (Auto) (0.0-1.0) % Sodium (136-145) mmol/L Potassium (3.5-5.1) mmol/L Chloride (98-107) mmol/L Carbon Dioxide (21-32) mmol/L Anion Gap (7-13) mEq/L BUN (7-18) mg/dL Creatinine (0.55-1.02) mg/dL Est Cr Clr Drug Dosing Estimated GFR (MDRD) BUN/Creatinine Ratio (No establ ref range) Glucose (70-99) mg/dL Calcium (8.5-10.1) mg/dL Magnesium (1.8-2.4) mg/dL Total Bilirubin (0.2-1.0) mg/dL AST (15-37) U/L ALT (14-59) U/L Alkaline Phosphatase (46-116) U/L Total Protein (6.4-8.2) g/dL Albumin (3.4-5.0) g/dL Globulin Albumin/Globulin Ratio TSH, Ultra Sensitive (0.36-3.74) uIU/mL Urine Color Dark yellow (YELLOW) Urine Appearance Clear (CLEAR) Urine pH 7.0 (5.0-9.0) Ur Specific [place] >= 1.030 (1.005-1.030) Urine Protein 30 H (NEGATIVE) Urine Glucose (UA) Negative (NEGATIVE) Urine Ketones Trace H (NEGATIVE) Urine Occult Blood Trace-intact H (NEGATIVE) Urine Nitrite Negative (NEGATIVE) Urine Bilirubin Negative (NEGATIVE) Urine Urobilinogen 1.0 (0.2-1.0) mg/dL Ur Leukocyte Esterase Large H (NEGATIVE) Urine RBC 5-10 H (0-5) /HPF Urine WBC 30-40 H (0-5/HPF) /HPF Ur Epithelial Cells Moderate H (NOT SEEN) /HPF Urine Bacteria Moderate H (0-FEW/HPF) /HPF Urine Mucus Rare (NOT SEEN) /LPF Urine HCG, Qual Negative Salicylates (2.8-20(Therapeutic)) mg/dL Urine Opiates Screen (NEGATIVE) Ur Oxycodone Screen (NEGATIVE) Urine Methadone Screen (NEGATIVE) Acetaminophen (10-30 (Therapeutic)) ug/mL Ur Barbiturates Screen (NEGATIVE) U Tricyclic Antidepress (NEGATIVE) Ur Phencyclidine Scrn (NEGATIVE) Ur Amphetamine Screen (NEGATIVE) U Methamphetamines Scrn (NEGATIVE) Urine MDMA Screen (NEGATIVE) U Benzodiazepines Scrn (NEGATIVE) Urine Cocaine Screen (NEGATIVE) U Marijuana (THC) Screen (NEGATIVE) Ethyl Alcohol (0) mg/dL Influenza Type A RNA Positive H (NEGATIVE) Influenza Type B RNA Negative (NEGATIVE) SARS-CoV-2 RNA (CHELSI) Negative (NEGATIVE) 07/25/21 07/25/21 Range/Units 00:48 02:20 WBC (5.0-10.0) 10^3/uL RBC (4.2-5.4) 10^6/uL Hgb (12.0-16.0) g/dL Hct (37.0-47.0) % MCV (80-100) fL MCH (27.0-34.0) pg MCHC (33.0-35.0) g/dL Plt Count (150-450) 10^3/uL Neut % (Auto) (42.2-75.2) % Lymph % (Auto) (20.5-50.1) % [place] % (Auto) (2-8) % Eos % (Auto) (1.0-3.0) % Baso % (Auto) (0.0-1.0) % Sodium 141 (136-145) mmol/L Potassium 3.6 (3.5-5.1) mmol/L Chloride 103 (98-107) mmol/L Carbon Dioxide 24 (21-32) mmol/L Anion Gap 17.6 H (7-13) mEq/L BUN 5 L (7-18) mg/dL Creatinine 1.00 (0.55-1.02) mg/dL Est Cr Clr Drug Dosing 70.61 Estimated GFR (MDRD) > 60 BUN/Creatinine Ratio 5.0 (No establ ref range) Glucose 101 H (70-99) mg/dL Calcium 8.3 L (8.5-10.1) mg/dL Magnesium (1.8-2.4) mg/dL Total Bilirubin 0.6 (0.2-1.0) mg/dL AST 125 H (15-37) U/L ALT 84 H (14-59) U/L Alkaline Phosphatase 225 H (46-116) U/L Total Protein 6.8 (6.4-8.2) g/dL Albumin 3.0 L (3.4-5.0) g/dL Globulin 3.8 Albumin/Globulin Ratio 0.79 TSH, Ultra Sensitive (0.36-3.74) uIU/mL Urine Color (YELLOW) Urine Appearance (CLEAR) Urine pH (5.0-9.0) Ur Specific [place] (1.005-1.030) Urine Protein (NEGATIVE) Urine Glucose (UA) (NEGATIVE) Urine Ketones (NEGATIVE) Urine Occult Blood (NEGATIVE) Urine Nitrite (NEGATIVE) Urine Bilirubin (NEGATIVE) Urine Urobilinogen (0.2-1.0) mg/dL Ur Leukocyte Esterase (NEGATIVE) Urine RBC (0-5) /HPF Urine WBC (0-5/HPF) /HPF Ur Epithelial Cells (NOT SEEN) /HPF Urine Bacteria (0-FEW/HPF) /HPF Urine Mucus (NOT SEEN) /LPF Urine HCG, Qual Salicylates (2.8-20(Therapeutic)) mg/dL Urine Opiates Screen Negative (NEGATIVE) Ur Oxycodone Screen Negative (NEGATIVE) Urine Methadone Screen Negative (NEGATIVE) Acetaminophen (10-30 (Therapeutic)) ug/mL Ur Barbiturates Screen Negative (NEGATIVE) U Tricyclic Antidepress Negative (NEGATIVE) Ur Phencyclidine Scrn Negative (NEGATIVE) Ur Amphetamine Screen Positive H (NEGATIVE) U Methamphetamines Scrn Positive H (NEGATIVE) Urine MDMA Screen Negative (NEGATIVE) U Benzodiazepines Scrn Negative (NEGATIVE) Urine Cocaine Screen Negative (NEGATIVE) U Marijuana (THC) Screen Negative (NEGATIVE) Ethyl Alcohol (0) mg/dL Influenza Type A RNA (NEGATIVE) Influenza Type B RNA (NEGATIVE) SARS-CoV-2 RNA (CHELSI) (NEGATIVE) Meds: Medications Generic Name Dose Route Start Last Admin Trade Name Freq PRN Reason Stop Dose Admin Sodium Chloride 10 ml 07/24/21 22:51 07/24/21 23:00 Sodium Chloride 0.9% 10 Ml Syringe FLUSH 10 ml ASDIRECTED PRN Administration Keep Vein Open Discontinued Medications Generic Name Dose Route Start Last Admin Trade Name Freq PRN Reason Stop Dose Admin Charcoal 50 gm 07/24/21 22:46 07/24/21 22:59 Activated Charcoal/Water Susp 50 Gm/240 Ml Tube PO 07/24/21 22:47 50 gm ONETIME ONE Administration - Re-Assessments/Exams Free Text/Narrative Re-Assessment/Exam: 07/25/21 02:54 Bella from [facility] came and evaluated pt and determined that she does not require inpatient treatment for suicidal ideations or attempt. She determined the pt is not sucidial at this time. A plan was developed to have the pt go to [facility] on Tuesday. The pt was also given the phone number for the crisis line to use in the event she becomes distressed or suicidal again. 07/25/21 02:56 The repeat CMP shows no increase in creatinine. The pt is medically cleared to go home at this time. Departure - Departure Time of Disposition: 02:57 Disposition: Home, Self-Care 01 Condition: Good Clinical Impression: Suicide attempt - Discharge Information *PRESCRIPTION DRUG MONITORING PROGRAM REVIEWED*: Not Applicable *COPY OF PRESCRIPTION DRUG MONITORING REPORT IN PATIENT TIA: Not Applicable Instructions: Suicidal Feelings: How to Help Yourself Forms: ED Department Discharge Additional Instructions: Follow up with [facility] on Tuesday. If you begin o experience suicidal thoughts contact the crisis line or call 911. Sepsis Event Note (ED) - Evaluation Sepsis Screening Result: No Definite Risk - Focused Exam Vital Signs: Vital Signs Temp Pulse Resp BP Pulse Ox 07/24/21 22:43 97.7 F 129 H 18 115/81 98 - My Orders Last 24 Hours: My Active Orders 07/24/21 22:51 Sodium Chloride 0.9% [Saline Flush] 10 ml FLUSH ASDIRECTED PRN Peripheral IV Insertion Adult [OM.PC] Routine 07/24/21 22:53 Peripheral IV Care [RC] . DIRECTED 07/25/21 00:48 CULTURE URINE [RM] Stat - Assessment/Plan Last 24 Hours: My Active Orders 07/24/21 22:51 Sodium Chloride 0.9% [Saline Flush] 10 ml FLUSH ASDIRECTED PRN Peripheral IV Insertion Adult [OM.PC] Routine 07/24/21 22:53 Peripheral IV Care [RC] . DIRECTED 07/25/21 00:48 CULTURE URINE [RM] Stat
[2021-07-25 01:07] LABS: AMPHETAMINES,URINE POSITIVE (NEGATIVE); BARBITURATES,URINE NEGATIVE (NEGATIVE); BENZODIAZEPINE,URINE NEGATIVE (NEGATIVE); MDMA (ECSTASY), URINE NEGATIVE (NEGATIVE); METHADONE,URINE NEGATIVE (NEGATIVE); METHAMPHETAMINES,URINE POSITIVE (NEGATIVE); OPIATES,URINE NEGATIVE (NEGATIVE); OXYCODONE,URINE NEGATIVE (NEGATIVE); PHENCYCLIDINE,URINE NEGATIVE (NEGATIVE); TCA,URINE NEGATIVE (NEGATIVE)
[2021-07-25 01:17] LABS: CORONAVIRUS COVID-19 NAA NEGATIVE (NEGATIVE)
[2021-07-25 02:46] LABS: ANION GAP 17.6 mEq/L (7-13); CHLORIDE,CL 103 mmol/L (98-107); SODIUM,NA 141 mmol/L (136-145)
== END 2021-07-25 03:06 | disposition home or self-care (01) ==
LOC: DL.ED 22:53
DX: F32.A Depression, unspecified (principal); Z20.822 Contact with and (suspected) exposure to COVID-19
CPT/HCPCS: 0240U; 36415; 80053; 80143; 80179; 80305; 80307; 81001; 81025; 83735; 84443; 85025; 87086; 87088; 87186; 93005; 99285

== ENCOUNTER 2021-08-16 05:02 | Emergency (ER) | payer MEDICAID ==
[2021-08-16 05:12] VITALS: BP 131/92; PULSE 95
[2021-08-16 05:23] LABS: AMPHETAMINES,URINE POSITIVE (NEGATIVE); BARBITURATES,URINE NEGATIVE (NEGATIVE); BENZODIAZEPINE,URINE NEGATIVE (NEGATIVE); MDMA (ECSTASY), URINE NEGATIVE (NEGATIVE); METHADONE,URINE NEGATIVE (NEGATIVE); METHAMPHETAMINES,URINE POSITIVE (NEGATIVE); OPIATES,URINE NEGATIVE (NEGATIVE); OXYCODONE,URINE NEGATIVE (NEGATIVE); PHENCYCLIDINE,URINE NEGATIVE (NEGATIVE); TCA,URINE NEGATIVE (NEGATIVE)
[2021-08-20 08:48] LABS: C.TRACHOMATIS BY TMA Negative (Negative); N.GONORRHOEAE BY TMA Positive (Negative)
== END 2021-08-16 08:52 | disposition home or self-care (01) ==
LOC: DL.ED 05:02
DX: F10.129 Alcohol abuse with intoxication, unspecified (principal); T76.21XA Adult sexual abuse, suspected, initial encounter; F15.10 Other stimulant abuse, uncomplicated; Y90.8 Blood alcohol level of 240 mg/100 ml or more
CPT/HCPCS: 36415; 80305-QW; 80307; 81003; 81025; 86803; 87389; 87491; 87563; 87591; 99285

== ENCOUNTER 2022-01-12 17:21 | Emergency (ER) | payer MEDICAID ==
[2022-01-12 17:33] VITALS: BP 126/80; PULSE 110
[2022-01-12] MEDS ORDERED: Sodium Chloride 0.9% 10 ML Syringe FLUSH PRN (17:39)
[2022-01-12 18:14] LABS: ANION GAP 12.7 mEq/L (7-13)
[2022-01-12] MEDS ORDERED: Sodium Chloride 0.9% 1,000 ML IV ONE (18:30)
[2022-01-12] MEDS ORDERED: Potassium Chloride 20 MEQ in Premix Bag 1 BAG IV ONE (18:30)
[2022-01-12] MEDS ORDERED: Iopamidol 612 MG/ML 100 ML Bottle IVPUSH ONE (18:37)
[2022-01-12] MEDS ORDERED: HYDROmorphone 1 MG/ML Syringe IVPUSH ONE (18:44)
[2022-01-12] MEDS ORDERED: Potassium Chloride 10% 20 MEQ/15 ML Soln 15 ML UD Cup PO STA (20:12)
[2022-01-12] MEDS ORDERED: cefTRIAXone 1 GM in Sodium Chloride 0.9% 50 ML IV ONE (20:14)
== END 2022-01-12 21:05 | disposition home or self-care (01) ==
LOC: DL.ED 17:21
DX: K80.20 Calculus of gallbladder without cholecystitis without obstruction (principal); N34.2 Other urethritis; N12 Tubulo-interstitial nephritis, not specified as acute or chronic; Z87.891 Personal history of nicotine dependence
CPT/HCPCS: 36415; 74178; 80053; 81001; 81025; 85025; 87040; 96365; 96367; 96375; 99284; A9270; J0696; J1170; J3480; J3490; J7030; Q9967

== ENCOUNTER 2023-01-16 23:10 | Inpatient (IN) | payer MEDICAID ==
[2023-01-17] MEDS ORDERED: Sodium Chloride 0.9% 10 ML Syringe FLUSH PRN (00:34)
[2023-01-17 00:57] LABS: BASOPHILS PERCENT AUTO 0.3 % (0.0-1.0); EOSINOPHILS PERCENT AUTO 0.6 % (1.0-3.0); HEMATOCRIT 31.2 % (37.0-47.0); HEMOGLOBIN 10.7 g/dL (12.0-16.0); LYMPHOCYTES PERCENT AUTO 10.9 % (20.5-50.1); MEAN CORPUSCULAR HEMOGLOBIN 31.9 pg (27.0-34.0); MEAN CORPUSCULAR HGB CONC 34.3 g/dL (33.0-35.0); MEAN CORPUSCULAR VOLUME 93.1 fL (80-100); MONOCYTES PERCENT AUTO 7.8 % (2-8); NEUTROPHILS PERCENT AUTO 80.4 % (42.2-75.2); PLATELET COUNT,PLT 294 10^3/uL (150-450); RED BLOOD CELL COUNT 3.35 10^6/uL (4.2-5.4); WHITE BLOOD CELL COUNT,WBC 15.5 10^3/uL (5.0-10.0)
[2023-01-17 01:10] LABS: ALANINE AMINOTRANSFERASE,ALT 29 U/L (14-59); ALBUMIN 1.7 g/dL (3.4-5.0); ALKALINE PHOSPHATASE 397 U/L (46-116); ASPARTATE AMNIOTRANSFERASE,AST 176 U/L (15-37); BILIRUBIN TOTAL 1.4 mg/dL (0.2-1.0); BLOOD UREA NITROGEN,BUN 3 mg/dL (7-18); BUN/CREATININE RATIO 3.4 (No establ ref range); CARBON DIOXIDE,CO2 22 mmol/L (21-32); CHLORIDE,CL 100 mmol/L (98-107); CREATININE 0.88 mg/dL (0.55-1.02); EST CRCL DRUG DOSING (CG) 83.35 mL/min; GLUCOSE RANDOM 92 mg/dL (70-99); LIPASE 58 U/L (73-393); PROTEIN TOTAL,TP 6.6 g/dL (6.4-8.2); SODIUM,NA 135 mmol/L (136-145)
[2023-01-17 01:16] LABS: ANION GAP 15.5 mEq/L (7-13); CALCIUM 6.1 mg/dL (8.5-10.1); POTASSIUM,K 2.5 mmol/L (3.5-5.1)
[2023-01-17 01:28] LABS: A/G RATIO 0.35; ESTIMATED GFR 90 mL/min (>=60)
[2023-01-17 01:38] LABS: HCG QUALITATIVE,SERUM NEGATIVE (NEGATIVE)
[2023-01-17] MEDS ORDERED: NS with KCl 40mEq 1,000 ML IV SCH (03:00)
[2023-01-17] MEDS ORDERED: HYDROmorphone 0.5 MG/0.5 ML Syringe IVPUSH PRN (03:26)
[2023-01-17] MEDS ORDERED: Acetaminophen 325 MG Tab PO PRN (03:26)
[2023-01-17] MEDS ORDERED: Albuterol/Ipratropium 3.0-0.5 MG/3 ML Neb Soln NEB PRN (03:26)
[2023-01-17] MEDS ORDERED: Promethazine 25 MG/ML SDV IM PRN (03:26)
[2023-01-17] MEDS ORDERED: Ondansetron 4 MG/2 ML SDV IVPUSH PRN (03:26)
[2023-01-17] MEDS ORDERED: Magnesium Sulfate/Water 4 GM in Premix Bag 1 BAG IV ONE (03:29)
[2023-01-17] MEDS ORDERED: LORazepam 0.5 MG Tab PO PRN (03:30)
[2023-01-17] MEDS ORDERED: cloNIDine 0.1 MG Tab PO PRN (03:30)
[2023-01-17] MEDS ORDERED: LORazepam 2 MG/ML SDV IV PRN (03:30)
[2023-01-17] MEDS ORDERED: Haloperidol Lactate 5 MG/ML SDV IM PRN (03:30)
[2023-01-17] MEDS ORDERED: MVI, Adult with Vitamin K 10 ML, Folic Acid 1 MG, Thiamine 100 MG in Lactated Ringers 1... IV ONE ×4 (03:31)
[2023-01-17] MEDS ORDERED: Thiamine 200 MG/2 ML MDV IVPUSH ONE (03:31)
[2023-01-17] MEDS ORDERED: Metoprolol Tartrate 5 MG/5 ML SDV IVPUSH PRN (03:33)
[2023-01-17] MEDS ORDERED: Famotidine 20 MG/2 ML SDV IVPUSH ONE (03:33)
[2023-01-17] MEDS ORDERED: Calcium Gluconate 10% 1 GM/10 ML SDV IVPUSH ONE (03:35)
[2023-01-17] MEDS ORDERED: Midodrine 2.5 MG Tab PO PRN (03:43)
[2023-01-17 04:06] LABS: INR 1.3 (0.9-1.2); PROTHROMBIN TIME 12.8 SEC (9.0-12.0)
[2023-01-17 04:13] LABS: AMPHETAMINES,URINE POSITIVE (NEGATIVE); BARBITURATES,URINE NEGATIVE (NEGATIVE); BENZODIAZEPINE,URINE NEGATIVE (NEGATIVE); MDMA (ECSTASY), URINE NEGATIVE (NEGATIVE); METHADONE,URINE NEGATIVE (NEGATIVE); METHAMPHETAMINES,URINE POSITIVE (NEGATIVE); OPIATES,URINE NEGATIVE (NEGATIVE); OXYCODONE,URINE NEGATIVE (NEGATIVE); PHENCYCLIDINE,URINE NEGATIVE (NEGATIVE); TCA,URINE NEGATIVE (NEGATIVE)
[2023-01-17 04:54] LABS: LACTIC ACID 2.9 mmol/L (0.4-2.0)
[2023-01-17] MEDS: Pantoprazole 40 MG Tab.CR PO SCH (06:05)
[2023-01-17] MEDS: Piperacillin/Tazobactam 3.375 GM in Sodium Chloride 0.9% 100 ML IV SCH ×3 (06:05→17:58)
[2023-01-17 08:02] LABS: ALBUMIN 1.6 g/dL (3.4-5.0); ANION GAP 13.1 mEq/L (7-13); BILIRUBIN TOTAL 1.6 mg/dL (0.2-1.0); BUN/CREATININE RATIO 3.8 (No establ ref range); CREATININE 0.79 mg/dL (0.55-1.02); EST CRCL DRUG DOSING (CG) 92.84 mL/min; MAGNESIUM 2.2 mg/dL (1.8-2.4); POTASSIUM,K 3.1 mmol/L (3.5-5.1); PROTEIN TOTAL,TP 6.3 g/dL (6.4-8.2)
[2023-01-17] MEDS: Albumin Human 25 GM in Premix Bag 1 BAG IV SCH ×3 (08:03→17:58)
[2023-01-17 08:08] LABS: A/G RATIO 0.34
[2023-01-17] MEDS ORDERED: Nicotine 21 MG/24 Hr Patch TRDERM PRN (09:00)
[2023-01-17] MEDS ORDERED: Phytonadione 10 MG in Sodium Chloride 0.9% 50 ML IV ONE (11:00)
[2023-01-17] MEDS ORDERED: Lidocaine 1% 5 ML VIAL INJECT ONE (11:00)
[2023-01-17] MEDS: Saccharomyces Boulardii (Probiotic) 250 MG Cap PO SCH ×2 (11:13→20:06)
[2023-01-17] MEDS: Furosemide 40 MG Tab PO SCH (11:13)
[2023-01-17] MEDS: Spironolactone 25 MG Tab PO SCH (11:13)
[2023-01-17] MEDS ORDERED: Lactated Ringers 1,000 ML IV SCH (12:00)
[2023-01-17] MEDS ORDERED: Potassium Chloride 10 MEQ Tab.ER PO ONE (12:15)
[2023-01-17 12:52] LABS: APPEARANCE,URINE CLEAR (CLEAR); BILIRUBIN,URINE NEGATIVE (NEGATIVE); COLOR,URINE YELLOW (YELLOW); GLUCOSE,URINE NEGATIVE (NEGATIVE); KETONES,URINE NEGATIVE (NEGATIVE); LEUKOCYTE ESTERASE,URINE NEGATIVE (NEGATIVE); NITRITE,URINE NEGATIVE (NEGATIVE); OCCULT BLOOD,URINE TRACE-INTACT (NEGATIVE); PROTEIN,URINE NEGATIVE (NEGATIVE); UROBILINOGEN,URINE 0.2 mg/dL (0.2-1.0)
[2023-01-17 13:00] LABS: BACTERIA,URINE RARE /HPF (0-FEW/HPF); EPITHELIAL CELLS,URINE RARE /HPF (NOT SEEN); MUCUS,URINE NOT SEEN /LPF (NOT SEEN); RBC,URINE NOT SEEN /HPF (0-5); WBC,URINE NOT SEEN /HPF (0-5/HPF)
[2023-01-17] MEDS: oxyCODONE 5 MG Tab PO PRN ×2 (16:28→22:46)
[2023-01-17 16:49] LABS: ALBUMIN 2.6 g/dL (3.4-5.0); ANION GAP 15.7 mEq/L (7-13); BILIRUBIN TOTAL 2.2 mg/dL (0.2-1.0); CALCIUM 6.1 mg/dL (8.5-10.1); EST CRCL DRUG DOSING (CG) 73.35 mL/min; POTASSIUM,K 3.7 mmol/L (3.5-5.1); PROTEIN TOTAL,TP 6.2 g/dL (6.4-8.2)
[2023-01-17 16:50] LABS: A/G RATIO 0.72
[2023-01-17] MEDS: Propranolol 20 MG Tab PO SCH (20:06)
[2023-01-17] MEDS ORDERED: Temazepam 15 MG Cap PO ONE (22:27)
[2023-01-17] MEDS: Lactated Ringers 1,000 ML IV SCH (22:52)
[2023-01-18] MEDS: Piperacillin/Tazobactam 3.375 GM in Sodium Chloride 0.9% 100 ML IV SCH ×4 (00:06→18:14)
[2023-01-18] MEDS: Lactated Ringers 1,000 ML IV SCH (00:54)
[2023-01-18] MEDS: Albumin Human 25 GM in Premix Bag 1 BAG IV SCH ×3 (00:56→13:31)
[2023-01-18] MEDS: Pantoprazole 40 MG Tab.CR PO SCH (05:58)
[2023-01-18] MEDS ORDERED: Phytonadione 5 MG in Sodium Chloride 0.9% 50 ML IV SCH (09:00)
[2023-01-18 09:09] LABS: INR 1.2 (0.9-1.2); PROTHROMBIN TIME 12.7 SEC (9.0-12.0); PTT,PARTIAL THROMBOPLSTIN TIME 36.4 SEC (22.0-34.0)
[2023-01-18] MEDS: Propranolol 20 MG Tab PO SCH ×2 (09:22→21:28)
[2023-01-18] MEDS: Saccharomyces Boulardii (Probiotic) 250 MG Cap PO SCH ×2 (09:22→21:26)
[2023-01-18] MEDS: Thiamine 100 MG Tab PO SCH (09:23)
[2023-01-18] MEDS: Furosemide 40 MG Tab PO SCH (09:26)
[2023-01-18] MEDS: Multivitamin Tab PO SCH (09:26)
[2023-01-18] MEDS: Folic Acid 1 MG Tab PO SCH (09:26)
[2023-01-18] MEDS: Spironolactone 25 MG Tab PO SCH (09:27)
[2023-01-18] MEDS: oxyCODONE 5 MG Tab PO PRN ×2 (09:28→21:28)
[2023-01-18] MEDS ORDERED: Magnesium Sulfate/Water 4 GM in Premix Bag 1 BAG IV ONE ×2 (10:00→20:18)
[2023-01-18] MEDS: Nicotine 21 MG/24 Hr Patch TRDERM SCH (10:04)
[2023-01-18] MEDS ORDERED: Temazepam 15 MG Cap PO ONE (21:00)
[2023-01-18] MEDS: Midodrine 2.5 MG Tab PO SCH (21:27)
[2023-01-19] MEDS: Piperacillin/Tazobactam 3.375 GM in Sodium Chloride 0.9% 100 ML IV SCH ×4 (00:08→17:36)
[2023-01-19] MEDS: Pantoprazole 40 MG Tab.CR PO SCH (05:55)
[2023-01-19 06:15] LABS: BASOPHILS PERCENT AUTO 0.4 % (0.0-1.0); EOSINOPHILS PERCENT AUTO 1.9 % (1.0-3.0); HEMATOCRIT 26.7 % (37.0-47.0); HEMOGLOBIN 8.3 g/dL (12.0-16.0); LYMPHOCYTES PERCENT AUTO 19.9 % (20.5-50.1); MEAN CORPUSCULAR HEMOGLOBIN 31.4 pg (27.0-34.0); MEAN CORPUSCULAR HGB CONC 31.1 g/dL (33.0-35.0); MEAN CORPUSCULAR VOLUME 101.1 fL (80-100); MONOCYTES PERCENT AUTO 9.2 % (2-8); NEUTROPHILS PERCENT AUTO 68.6 % (42.2-75.2); PLATELET COUNT,PLT 202 10^3/uL (150-450); RED BLOOD CELL COUNT 2.64 10^6/uL (4.2-5.4); WHITE BLOOD CELL COUNT,WBC 11.3 10^3/uL (5.0-10.0)
[2023-01-19 06:47] LABS: A/G RATIO 1.07; ALBUMIN 3.2 g/dL (3.4-5.0); ANION GAP 12.2 mEq/L (7-13); BILIRUBIN TOTAL 1.6 mg/dL (0.2-1.0); BUN/CREATININE RATIO 2.5 (No establ ref range); CALCIUM 6.4 mg/dL (8.5-10.1); CREATININE 0.79 mg/dL (0.55-1.02); EST CRCL DRUG DOSING (CG) 92.06 mL/min; POTASSIUM,K 3.2 mmol/L (3.5-5.1); PROTEIN TOTAL,TP 6.2 g/dL (6.4-8.2)
[2023-01-19] MEDS ORDERED: Magnesium Sulfate/Water 2 GM in Premix Bag 1 BAG IV ONE ×2 (07:46→19:33)
[2023-01-19] MEDS: oxyCODONE 5 MG Tab PO PRN ×4 (08:11→23:00)
[2023-01-19] MEDS: Potassium Chloride 10 MEQ Tab.ER PO SCH (08:12)
[2023-01-19] MEDS: Midodrine 2.5 MG Tab PO SCH ×3 (08:59→20:58)
[2023-01-19] MEDS: Thiamine 100 MG Tab PO SCH (09:05)
[2023-01-19] MEDS: Propranolol 20 MG Tab PO SCH ×2 (09:05→20:57)
[2023-01-19] MEDS: Multivitamin Tab PO SCH (09:05)
[2023-01-19] MEDS: Furosemide 40 MG Tab PO SCH (09:06)
[2023-01-19] MEDS: Folic Acid 1 MG Tab PO SCH (09:06)
[2023-01-19] MEDS: Saccharomyces Boulardii (Probiotic) 250 MG Cap PO SCH ×2 (09:06→20:59)
[2023-01-19] MEDS: Spironolactone 25 MG Tab PO SCH (09:06)
[2023-01-19] MEDS: Nicotine 21 MG/24 Hr Patch TRDERM SCH (09:08)
[2023-01-19] MEDS ORDERED: Calcium Gluconate 10% 1 GM/10 ML SDV IVPUSH ONE ×2 (12:00→17:00)
[2023-01-19 18:40] LABS: BASOPHILS PERCENT AUTO 0.4 % (0.0-1.0); EOSINOPHILS PERCENT AUTO 2.2 % (1.0-3.0); HEMATOCRIT 27.8 % (37.0-47.0); HEMOGLOBIN 9.1 g/dL (12.0-16.0); MEAN CORPUSCULAR HEMOGLOBIN 32.5 pg (27.0-34.0); MEAN CORPUSCULAR HGB CONC 32.7 g/dL (33.0-35.0); MEAN CORPUSCULAR VOLUME 99.3 fL (80-100); MONOCYTES PERCENT AUTO 9.8 % (2-8); NEUTROPHILS PERCENT AUTO 67.6 % (42.2-75.2); PLATELET COUNT,PLT 247 10^3/uL (150-450); WHITE BLOOD CELL COUNT,WBC 13.7 10^3/uL (5.0-10.0)
[2023-01-19 19:00] LABS: ALBUMIN 3.1 g/dL (3.4-5.0); BILIRUBIN TOTAL 1.7 mg/dL (0.2-1.0); BUN/CREATININE RATIO 2.4 (No establ ref range); CALCIUM 7.5 mg/dL (8.5-10.1); CREATININE 0.83 mg/dL (0.55-1.02); EST CRCL DRUG DOSING (CG) 87.62 mL/min; MAGNESIUM 1.6 mg/dL (1.8-2.4); PROTEIN TOTAL,TP 6.4 g/dL (6.4-8.2)
[2023-01-19 19:05] LABS: A/G RATIO 0.94
[2023-01-20] MEDS: Piperacillin/Tazobactam 3.375 GM in Sodium Chloride 0.9% 100 ML IV SCH ×2 (00:05→06:18)
[2023-01-20] MEDS ORDERED: Magnesium Sulfate/Water 2 GM in Premix Bag 1 BAG IV ONE (04:00)
[2023-01-20] MEDS: oxyCODONE 5 MG Tab PO PRN (04:41)
[2023-01-20 06:13] LABS: BASOPHILS PERCENT AUTO 0.4 % (0.0-1.0); EOSINOPHILS PERCENT AUTO 1.9 % (1.0-3.0); HEMOGLOBIN 8.2 g/dL (12.0-16.0); LYMPHOCYTES PERCENT AUTO 14.2 % (20.5-50.1); MEAN CORPUSCULAR HEMOGLOBIN 31.7 pg (27.0-34.0); MEAN CORPUSCULAR HGB CONC 31.5 g/dL (33.0-35.0); MEAN CORPUSCULAR VOLUME 100.4 fL (80-100); MONOCYTES PERCENT AUTO 12.2 % (2-8); NEUTROPHILS PERCENT AUTO 71.3 % (42.2-75.2); PLATELET COUNT,PLT 237 10^3/uL (150-450); RED BLOOD CELL COUNT 2.59 10^6/uL (4.2-5.4); WHITE BLOOD CELL COUNT,WBC 12.7 10^3/uL (5.0-10.0)
[2023-01-20] MEDS: Pantoprazole 40 MG Tab.CR PO SCH (06:15)
[2023-01-20 06:28] LABS: A/G RATIO 0.84; ALBUMIN 2.6 g/dL (3.4-5.0); ANION GAP 10.3 mEq/L (7-13); BILIRUBIN TOTAL 1.4 mg/dL (0.2-1.0); BUN/CREATININE RATIO 3.8 (No establ ref range); CALCIUM 7.2 mg/dL (8.5-10.1); CREATININE 0.8 mg/dL (0.55-1.02); EST CRCL DRUG DOSING (CG) 90.91 mL/min; MAGNESIUM 2.4 mg/dL (1.8-2.4); POTASSIUM,K 4.3 mmol/L (3.5-5.1); PROTEIN TOTAL,TP 5.7 g/dL (6.4-8.2)
[2023-01-20] MEDS: Thiamine 100 MG Tab PO SCH (08:08)
[2023-01-20] MEDS: Propranolol 20 MG Tab PO SCH (08:08)
[2023-01-20] MEDS: Folic Acid 1 MG Tab PO SCH (08:08)
[2023-01-20] MEDS: Saccharomyces Boulardii (Probiotic) 250 MG Cap PO SCH (08:08)
[2023-01-20] MEDS: Spironolactone 25 MG Tab PO SCH (08:09)
[2023-01-20] MEDS: Multivitamin Tab PO SCH (08:09)
[2023-01-20] MEDS: Midodrine 2.5 MG Tab PO SCH (08:10)
[2023-01-20] MEDS: Potassium Chloride 10 MEQ Tab.ER PO SCH (08:10)
[2023-01-20] MEDS: Nicotine 21 MG/24 Hr Patch TRDERM SCH (08:17)
[2023-01-20] MEDS ORDERED: Furosemide 40 MG Tab PO SCH (09:00)
[2023-01-20 12:21] VITALS: BP 101/63; PULSE 86
== END 2023-01-20 12:42 | disposition home or self-care (01) | DRG 432 ==
LOC: DL.ED 23:10 → DL.MS 01-17 03:21 → UNDOADMIN 01-17 03:21 → DL.MS 01-17 03:23
PROVIDERS: ADMIT Internal Medicine; ATTEND Internal Medicine
PROC: 0W9G3ZZ Drainage of Peritoneal Cavity, Percutaneous Approach (ICD-10-PCS; principal; 2023-01-17)
DX: K70.40 Alcoholic hepatic failure without coma (principal); E43 Unspecified severe protein-calorie malnutrition; E87.1 Hypo-osmolality and hyponatremia; E86.0 Dehydration; F10.920 Alcohol use, unspecified with intoxication, uncomplicated; R65.10 Systemic inflammatory response syndrome (SIRS) of non-infectious origin without acute organ dysfunction; E87.20 Acidosis, unspecified; K76.6 Portal hypertension; K70.31 Alcoholic cirrhosis of liver with ascites; F17.210 Nicotine dependence, cigarettes, uncomplicated; I50.9 Heart failure, unspecified; E87.6 Hypokalemia; E83.51 Hypocalcemia; F10.129 Alcohol abuse with intoxication, unspecified; E83.42 Hypomagnesemia; F15.10 Other stimulant abuse, uncomplicated; F41.0 Panic disorder [episodic paroxysmal anxiety]; F32.A Depression, unspecified; Z79.899 Other long term (current) drug therapy; Z98.890 Other specified postprocedural states; Z68.20 Body mass index [BMI] 20.0-20.9, adult
CPT/HCPCS: 36415; 49083; 76705; 80053; 80202; 80305-QW; 80307; 81001; 83605; 83690; 83735; 84703; 85025; 85610; 85651; 85730; 86140; 87040; 87070; 93005; 93010; 96365; 99285; 99285-25; A9270-GY; J0612; J1170; J2543; J3370; J3411; J3430; J3475; J3480; J3490; J7050; J7120; P9047

== ENCOUNTER 2023-04-12 02:43 | Emergency (ER) | payer MEDICAID ==
[2023-04-12 03:08] LABS: HEMATOCRIT 22.7 % (37.0-47.0); HEMOGLOBIN 8.1 g/dL (12.0-16.0); MEAN CORPUSCULAR HEMOGLOBIN 29.7 pg (27.0-34.0); MEAN CORPUSCULAR HGB CONC 35.7 g/dL (33.0-35.0); MEAN CORPUSCULAR VOLUME 83.2 fL (80-100); PLATELET COUNT,PLT 235 10^3/uL (150-450); RED BLOOD CELL COUNT 2.73 10^6/uL (4.2-5.4); WHITE BLOOD CELL COUNT,WBC 16.5 10^3/uL (5.0-10.0)
[2023-04-12 03:15] LABS: ALANINE AMINOTRANSFERASE,ALT 35 U/L (14-59); ALBUMIN 1.6 g/dL (3.4-5.0); ALKALINE PHOSPHATASE 250 U/L (46-116); ANION GAP 14.6 mEq/L (7-13); ASPARTATE AMNIOTRANSFERASE,AST 123 U/L (15-37); BILIRUBIN TOTAL 17.8 mg/dL (0.2-1.0); BLOOD UREA NITROGEN,BUN 15 mg/dL (7-18); BUN/CREATININE RATIO 8.5 (No establ ref range); C-REACTIVE PROTEIN 6.93 ng/dL (<=0.30); CALCIUM 7.8 mg/dL (8.5-10.1); CARBON DIOXIDE,CO2 22 mmol/L (21-32); CHLORIDE,CL 93 mmol/L (98-107); CREATININE 1.77 mg/dL (0.55-1.02); EST CRCL DRUG DOSING (CG) 38.78 mL/min; ETHANOL BLOOD MEDICAL 53 mg/dL (0); GLUCOSE RANDOM 99 mg/dL (70-99); LIPASE 18 U/L (16-77); POTASSIUM,K 3.6 mmol/L (3.5-5.1); PROTEIN TOTAL,TP 6.8 g/dL (6.4-8.2); SODIUM,NA 126 mmol/L (136-145)
[2023-04-12 03:22] LABS: B-TYPE NATRIURETIC PEPTIDE,BNP 167 pg/ml (0-100)
[2023-04-12 03:24] LABS: A/G RATIO 0.31; ESTIMATED GFR 39 mL/min (>=60)
[2023-04-12 03:26] LABS: INR 2.5 (0.9-1.2); LACTIC ACID 2.4 mmol/L (0.4-2.0); PROTHROMBIN TIME 24.6 SEC (9.0-12.0); PTT,PARTIAL THROMBOPLSTIN TIME 45.4 SEC (22.0-34.0)
[2023-04-12 03:28] LABS: BASOPHILS PERCENT AUTO 0.1 % (0.0-1.0); EOSINOPHILS PERCENT AUTO 0.6 % (1.0-3.0); LYMPHOCYTES PERCENT AUTO 13.2 % (20.5-50.1); MONOCYTES PERCENT AUTO 11.9 % (2-8); NEUTROPHILS PERCENT AUTO 74.2 % (42.2-75.2)
[2023-04-12 03:30] LABS: HCG QUALITATIVE,SERUM NEGATIVE (NEGATIVE)
[2023-04-12] MEDS ORDERED: Albumin Human 25 GM in Premix Bag 1 BAG IV ONE (03:43)
[2023-04-12] MEDS ORDERED: cefTRIAXone 2 GM Vial IVPUSH ONE (03:44)
[2023-04-12] MEDS ORDERED: Iopamidol 612 MG/ML 100 ML Bottle IVPUSH ONE (04:00)
[2023-04-12] MEDS ORDERED: Furosemide 20 MG/2 ML VIAL IVPUSH ONE (04:01)
[2023-04-12] MEDS ORDERED: fentaNYL 100 MCG/2 ML SDV IVPUSH ONE (04:04)
[2023-04-12] MEDS ORDERED: Ondansetron 4 MG/2 ML SDV IVPUSH ONE (04:04)
[2023-04-12 04:14] LABS: BAND PERCENT MAN 3 %; EOSINOPHILS PERCENT MAN 2 % (1-3); LYMPHOCYTES PERCENT MAN 19 % (20-50); MONOCYTES PERCENT MAN 4 % (2-8); SEG NEUTROPHILS PERCENT MAN 72 % (42-75)
[2023-04-12 06:23] VITALS: BP 108/53; PULSE 132
== END 2023-04-12 06:20 ==
LOC: DL.ED 02:43
DX: K70.31 Alcoholic cirrhosis of liver with ascites (principal); E87.1 Hypo-osmolality and hyponatremia; E77.8 Other disorders of glycoprotein metabolism; R09.89 Other specified symptoms and signs involving the circulatory and respiratory systems; K63.89 Other specified diseases of intestine; I86.2 Pelvic varices; K80.20 Calculus of gallbladder without cholecystitis without obstruction; D64.9 Anemia, unspecified; Z79.899 Other long term (current) drug therapy
CPT/HCPCS: 36415; 71045; 74177; 80053; 80307; 82140; 83605; 83690; 83880; 84703; 85025; 85610; 85730; 86140; 87040; 96365; 96375; 99284; 99285-25; J0696; J1940; J2405; J3010; P9047; Q9967

== ENCOUNTER 2023-04-28 10:12 | Emergency (ER) | payer MEDICAID ==
[2023-04-28] MEDS: Ondansetron 4 MG/2 ML SDV IV ONE ×2 (10:20→13:11)
[2023-04-28] MEDS: HYDROmorphone 0.5 MG/0.5 ML Syringe IVPUSH ONE (10:22)
[2023-04-28 10:25] LABS: BASOPHILS PERCENT AUTO 0.2 % (0.0-1.0); HEMATOCRIT 27.6 % (37.0-47.0); HEMOGLOBIN 9.4 g/dL (12.0-16.0); LYMPHOCYTES PERCENT AUTO 7.4 % (20.5-50.1); MEAN CORPUSCULAR HEMOGLOBIN 32.2 pg (27.0-34.0); MEAN CORPUSCULAR HGB CONC 34.1 g/dL (33.0-35.0); MEAN CORPUSCULAR VOLUME 94.5 fL (80-100); MONOCYTES PERCENT AUTO 10.9 % (2-8); NEUTROPHILS PERCENT AUTO 80.5 % (42.2-75.2); PLATELET COUNT,PLT 288 10^3/uL (150-450); RED BLOOD CELL COUNT 2.92 10^6/uL (4.2-5.4); WHITE BLOOD CELL COUNT,WBC 21.9 10^3/uL (5.0-10.0)
[2023-04-28 10:36] VITALS: BP 128/78; PULSE 118
[2023-04-28] MEDS: Sodium Chloride 0.9% 10 ML Syringe FLUSH PRN (10:37)
[2023-04-28 10:49] LABS: LACTIC ACID 2.3 mmol/L (0.4-2.0)
[2023-04-28 11:01] LABS: INR 2.3 (0.9-1.2); PROTHROMBIN TIME 22.5 SEC (9.0-12.0); PTT,PARTIAL THROMBOPLSTIN TIME 54.1 SEC (22.0-34.0)
[2023-04-28 11:05] LABS: ALANINE AMINOTRANSFERASE,ALT 26 U/L (14-59); ALBUMIN 2.7 g/dL (3.4-5.0); ALKALINE PHOSPHATASE 185 U/L (46-116); ANION GAP 15.3 mEq/L (7-13); ASPARTATE AMNIOTRANSFERASE,AST 81 U/L (15-37); BLOOD UREA NITROGEN,BUN 5 mg/dL (7-18); BUN/CREATININE RATIO 9.4 (No establ ref range); CALCIUM 8.3 mg/dL (8.5-10.1); CARBON DIOXIDE,CO2 20 mmol/L (21-32); CHLORIDE,CL 97 mmol/L (98-107); CREATININE 0.53 mg/dL (0.55-1.02); GLUCOSE RANDOM 108 mg/dL (70-99); LIPASE 21 U/L (16-77); MAGNESIUM 1.5 mg/dL (1.8-2.4); POTASSIUM,K 3.3 mmol/L (3.5-5.1); SODIUM,NA 129 mmol/L (136-145)
[2023-04-28 11:33] LABS: BILIRUBIN TOTAL 31.8 mg/dL (0.2-1.0); ESTIMATED GFR 127 mL/min (>=60)
[2023-04-28 12:07] LABS: PROTEIN TOTAL,TP 3.2 g/dL (6.4-8.2)
[2023-04-28] MEDS: cefTRIAXone 2 GM Vial IVPUSH ONE (12:36)
[2023-04-28] MEDS: HYDROmorphone 1 MG/ML Syringe IVPUSH ONE (13:12)
== END 2023-04-28 13:15 ==
LOC: DL.ED 10:12
DX: K70.31 Alcoholic cirrhosis of liver with ascites (principal); I10 Essential (primary) hypertension; F17.210 Nicotine dependence, cigarettes, uncomplicated; Z79.899 Other long term (current) drug therapy
CPT/HCPCS: 36415; 80053; 82140; 83605; 83690; 83735; 84145; 85025; 85384; 85610; 85730; 87040; 93005; 96374; 96375; 96376; 99285; J0696; J1170; J2405; J3490